=== PATIENT | female | born 1940 | race African-American/Black ===

== ENCOUNTER 2016-05-07 10:39 | Inpatient (IN) | payer OTHER ==
[~2016-05-07] VITALS: Ht 157.5 cm; Wt 73.3 kg
--- NOTE | ~2016-05-07 | SPIROMETRY ---
[facility] [place] [address] SPIROMETRY Name: RAMIRO VAZ Room #: 307-P [facility] IN M.R.#: [id number] Admission: 05/07/16 Attend Phys: Andrew Milan DO Discharge: 05/11/16 Date of : 40 Report #: [id number] THIS REPORT FOR: //name// >> SPIROMETRY: (BTPS) Height: 62 in cm Weight: 161 lbs kg Exam Date: 05/08/16 PRE-RX POST-RX PRED BEST %PRED BEST %PRED %CHG FVC LITERS . 2.51 . 0.91 . 36 . 0.91 . 36 . 0 FEV1 LITERS . 1.92 . 0.58 . 30 . 0.57 . 30 . -2 FEV1/FVC % . 78 . 64 . 81 . 63 . 80 . -7 XTA47-96% L/Sec . 1.76 . 0.30 . 17 . 0.30 . 17 . 0 PEF L/SEC . 5.08 . 2.02 . 40 . 1.87 . 37 . -7 FEF50/FIF50 UNITLESS . . . . . . >> INTERPRETATION/IMPRESSION: CC: FAM unknown Andrew Milan Spirometry both pre- and post-meth 3 short blows. There is no significant change, post. suggests low FVC with severe obstruction. <ELECTRONICALLY SIGNED> By: Thea Ly MD 05/13/16 2309 Thea Ly MD /nt
--- NOTE | ~2016-05-07 | 2DMMODE ---
[facility] [place] [address] 2 D/M-MODE ECHOCARDIOGRAM Name: RAMIRO VAZ Room #: 307-P [facility] IN ..#: [id number] Admission: 05/07/16 Attend Phys: Andrew Milan, Discharge: Date of : 40 Date of Service: 05/08/16 1231 Report #: [id number] THIS REPORT FOR: //name// Transthoracic Echocardiography Ordering physician: True John Referring physician: True John Draw Operator: IDANIA Morin Indications/History: SOA, Pulmonary HTN. BP: 114 / HR: 111bpm Height: 62in Weight: 160.7lb 65 Study data: M-mode, complete 2D, complete spectral Doppler, and color Doppler. Location: Bedside. Routine. Image quality was good. 2D measurements Normal Normal LVID ED 38.4mm 36-57 IVS ED 9.8mm 6-11 LVID ES 27.6mm 23-40 LVPW ED 11.2mm 6-11 LA volume 25ml/m2 16-28 AoRoot diam 29.3mm 21-37 index ED LVOT diameter 21mm 18-23 Findings: Left ventricle: The cavity size was normal. Wall thickness was normal. Systolic function was normal. The estimated ejection fraction was in the range of 60% to 65%. Wall motion was normal. Right ventricle: The cavity size was normal. Systolic function was normal. Right atrium: The atrium was normal in size. Left atrium: The atrium was normal in size. Volume index: 25ml/m2 (S). Aortic valve: Trileaflet; mildly calcified leaflets. Doppler: There was no stenosis. No regurgitation. Peak velocity: 177.5cm/s (S). Peak gradient: 12.6mm Hg (S). [facility] [address] [place] [address] 2 D/M-MODE ECHOCARDIOGRAM Name: RAMIRO VAZ Room #: 625-P [facility] IN Deedee#: [id number] Admission: 05/07/16 Attend Phys: Andrew Milan, Discharge: Date of : 40 Date of Service: 05/08/16 1231 Report #: [id number] Mitral valve: Moderately calcified annulus. Doppler: There was no evidence for stenosis. No regurgitation. Peak E-wave velocity: 86.7cm/s. Peak gradient: 3mm Hg (D). Peak A-wave velocity: 138.8cm/s. Tricuspid valve: Structurally normal valve. Doppler: There was no evidence for stenosis. Mild regurgitation. Regurgitant peak velocity: 323.3cm/s. Peak RV-RA gradient: 42mm Hg (S). Pulmonic valve: Structurally normal valve. Doppler: There was no evidence for stenosis. No regurgitation. Pericardium: There was no pericardial effusion. Aorta: Aortic root: The aortic root was normal in size. Pulmonary artery: Systolic pressure was estimated to be 50mm Hg. Diastolic function: Doppler parameters are consistent with abnormal left ventricular relaxation (grade 1 diastolic dysfunction). Systemic veins: Inferior vena cava: The vessel was dilated; the respirophasic diameter changes were in the normal range (= 50%). Conclusions 1. Left ventricle: Systolic function was normal. The estimated ejection fraction was in the range of 60% to 65%. Wall motion was normal. Doppler parameters are consistent with abnormal left ventricular relaxation (grade 1 diastolic dysfunction). 2. Aortic valve: Trileaflet; mildly calcified leaflets. There was no stenosis. No regurgitation. 3. Mitral valve: Moderately calcified annulus. No regurgitation. 4. Pericardium, extracardiac: There was no pericardial effusion. 5. Pulmonary arteries: Systolic pressure was estimated to be 50mm Hg. <ELECTRONICALLY SIGNED> By: Raul Brown MD, [facility] 05/08/161903 1231 03 Raul Brown MD, [facility] /denzel
--- NOTE | ~2016-05-07 | D ---
[facility] [place] [address] DISCHARGE SUMMARY Name: RAMIRO VAZ Room #: 307-P [facility] IN M.R.#: [id number] Admission: 05/07/16 Attend Phys: Andrew Milan DO Discharge: 05/11/16 Date of : 40 Report #: [id number] THIS REPORT FOR: //name// CC: FAM unknown Andrew Milan DATE OF SERVICE: 05/11/2016 TYPE OF DICTATION: Discharge summary after xlhy-qb-nqeu encounter. DISCHARGE DIAGNOSES: 1. Chronic obstructive pulmonary disease exacerbation. 2. Acute on chronic respiratory failure. 3. Hypertension. 4. Tobacco abuse. 5. Leukocytosis, resolved. DISCHARGE MEDICATIONS: See discharge summary. HOSPITAL COURSE: The patient was admitted to the hospital secondary to short of breath. She was having acute on chronic respiratory failure with COPD exacerbation. I think she might have some infection triggering that. The patient was seen by the pulmonary service and she had an echocardiogram, which did show ejection fraction of 60% with normal structures. The patient's TSH was normal and her ABGs started to get better and the hypercapnia resolved completely and she oxygen requirement, which she is using at home. So, the patient improved and at this point, Pulmonary thinks that she can go home. To continue 5 days of Levaquin and nebulizers and oxygen at home and follow up with her primary lung puller at [facility]. The patient is stable, going home on the above-mentioned condition. <ELECTRONICALLY SIGNED> By: Julio Cesar Mary MD 05/12/16 1126 0843 1147 Julio Cesar Mary MD /nt
--- NOTE | ~2016-05-07 | EKG ---
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
[2016-05-07 10:40] VITALS: BP 130/72
[2016-05-07 11:02] LABS: ABSOLUTE NEUTROPHILS 3.8 thou/uL (1.4-8.2); BASOPHILS 0.9 % (0.0-2.0); EOSINOPHILS 1.3 % (0.0-3.0); HEMATOCRIT 46.6 % (37.0-47.0); HEMOGLOBIN 15.2 gm/dL (12.0-15.0); LYMPHOCYTES 24.3 % (24.0-44.0); MCH 31.4 pg (26.0-34.0); MCHC 32.6 % (28.0-37.0); MCV 96.3 fL (80.0-100.0); MONOCYTES 11.7 % (1.0-8.0); PLATELET COUNT 261 thou/uL (150-400); POLYS 61.8 % (36.0-66.0); RBC 4.84 mil/uL (4.20-5.00); WBC 6.1 thou/uL (4.0-11.0)
[2016-05-07 11:05] LABS: MANUAL DIFF NO
[2016-05-07 11:15] LABS: ABG SAMPLE TYPE ARTERIAL; BE(vivo) 7.7 mmol/L (-2 to +3); HCO3 37.7 mmol/L (22.0-26.0); LACTATE 1.42 mmol/L (0.5-2.0); O2(CT) 19.9 mL/dL (15.0-23.0); O2Hb 88.5 % (92.0-98.0); PO2 73.3 mmHg (80.0-100.0); sO2 92.6 % (92.0-98.0); tCO2 40.1 mmol/L (24.0-30.0)
[2016-05-07 11:17] LABS: STICK SITE R.BRACHIAL; pH 7.302 (7.360-7.450)
[2016-05-07 11:19] LABS: CALCIUM 9.2 mg/dL (8.5-10.1); CREATININE 0.8 mg/dL (0.6-1.3); POTASSIUM 4.2 mmol/L (3.5-5.1)
[2016-05-07] MEDS ORDERED: NORVASC10 MG PO (11:21)
[2016-05-07] MEDS ORDERED: KLOR-CON 1010 MEQ PO (11:21)
[2016-05-07] MEDS ORDERED: HYDROCHLOROTHIA25 M2 PO (11:21)
[2016-05-07] MEDS ORDERED: ASPIR 8181 MG PO (11:21)
[2016-05-07] MEDS ORDERED: VITAMIN D3400 UNIT PO (11:21)
[2016-05-07] MEDS ORDERED: PROAIR HFA8.5 GM PO (11:22)
[2016-05-07] MEDS ORDERED: COMBIVENT RESPIM4 GM IH (11:22)
[2016-05-07] MEDS ORDERED: SIMBRINZA 1%-0.28 ML OP (11:23)
[2016-05-07 11:26] LABS: TROPONIN-I 0.13 ng/mL (<0.04-0.07)
[2016-05-07 13:36] LABS: ABG SAMPLE TYPE ARTERIAL; BE(vivo) 5.2 mmol/L (-2 to +3); HCO3 34.9 mmol/L (22.0-26.0); LACTATE 0.86 mmol/L (0.5-2.0); O2(CT) 19.8 mL/dL (15.0-23.0); O2Hb 90.4 % (92.0-98.0); PO2 78.7 mmHg (80.0-100.0); STICK SITE R.BRACHIAL; pH 7.286 (7.360-7.450); sO2 93.7 % (92.0-98.0); tCO2 37.2 mmol/L (24.0-30.0)
[2016-05-07] MEDS ORDERED: DORZOLAMIDE HCL10 ML OP (15:45)
[2016-05-07] MEDS ORDERED: BRIMONIDINE TAR1 BO1 OP (15:46)
[2016-05-07] MEDS ORDERED: TIMOLOL MA0.25 %/52 (15:46)
[2016-05-07 16:01] VITALS: BP 118/63
[2016-05-07 19:55] VITALS: BP 111/71
[2016-05-08 00:15] VITALS: BP 101/60
[2016-05-08 03:45] VITALS: BP 119/73
[2016-05-08 06:33] LABS: ABSOLUTE NEUTROPHILS 4.1 thou/uL (1.4-8.2); BASOPHILS 0.2 % (0.0-2.0); HEMATOCRIT 46.2 % (37.0-47.0); HEMOGLOBIN 14.9 gm/dL (12.0-15.0); LYMPHOCYTES 10.1 % (24.0-44.0); MCH 31.3 pg (26.0-34.0); MCHC 32.3 % (28.0-37.0); MCV 96.8 fL (80.0-100.0); MONOCYTES 1.4 % (1.0-8.0); PLATELET COUNT 248 thou/uL (150-400); POLYS 88.3 % (36.0-66.0); RBC 4.78 mil/uL (4.20-5.00); RDW 13.8 % (10.5-14.5); WBC 4.7 thou/uL (4.0-11.0)
[2016-05-08 06:45] LABS: MANUAL DIFF NO
[2016-05-08 06:53] LABS: CALCIUM 9.4 mg/dL (8.5-10.1); CREATININE 0.8 mg/dL (0.6-1.3); POTASSIUM 4.9 mmol/L (3.5-5.1)
[2016-05-08 06:58] LABS: ABG SAMPLE TYPE ARTERIAL; BE(vivo) 4.1 mmol/L (-2 to +3); LACTATE 1.01 mmol/L (0.5-2.0); O2(CT) 20.5 mL/dL (15.0-23.0); O2Hb 93.3 % (92.0-98.0); PCO2 75.5 mmHg (35.0-45.0); PO2 83.8 mmHg (80.0-100.0); STICK SITE R.BRACHIAL; pH 7.271 (7.360-7.450); sO2 94.5 % (92.0-98.0); tCO2 36.3 mmol/L (24.0-30.0)
[2016-05-08 10:13] VITALS: BP 114/65
[2016-05-08 18:16] VITALS: BP 105/64
[2016-05-08 20:00] VITALS: BP 105/59
[2016-05-09 04:00] VITALS: BP 105/57
[2016-05-09 05:42] LABS: HEMATOCRIT 44.2 % (37.0-47.0); HEMOGLOBIN 14.1 gm/dL (12.0-15.0); MCHC 31.8 % (28.0-37.0); MCV 97.3 fL (80.0-100.0); PLATELET COUNT 259 thou/uL (150-400); RBC 4.54 mil/uL (4.20-5.00); RDW 14.1 % (10.5-14.5); WBC 11.5 thou/uL (4.0-11.0)
[2016-05-09 05:51] LABS: MANUAL DIFF YES
[2016-05-09 05:55] LABS: CALCIUM 9.6 mg/dL (8.5-10.1); CREATININE 0.9 mg/dL (0.6-1.3); POTASSIUM 4.8 mmol/L (3.5-5.1)
[2016-05-09 07:17] LABS: ABSOLUTE NEUTROPHILS 10.5 thou/uL (1.4-8.2); PLATELET ESTIMATE NORMAL; TOTAL CELL COUNT 100
[2016-05-09 08:39] VITALS: BP 110/66
[2016-05-09 09:45] LABS: ABG SAMPLE TYPE ARTERIAL; BE(vivo) 5.8 mmol/L (-2 to +3); HCO3 33.1 mmol/L (22.0-26.0); LACTATE 2.57 mmol/L (0.5-2.0); O2(CT) 19.2 mL/dL (15.0-23.0); O2Hb 93.4 % (92.0-98.0); PCO2 59.3 mmHg (35.0-45.0); PO2 79.5 mmHg (80.0-100.0); STICK SITE L.BRACHIAL; pH 7.365 (7.360-7.450); sO2 95.1 % (92.0-98.0); tCO2 34.9 mmol/L (24.0-30.0)
[2016-05-09 16:01] VITALS: BP 118/70
[2016-05-09 20:00] VITALS: BP 104/69
[2016-05-10 04:00] VITALS: BP 109/66
[2016-05-10 07:14] VITALS: BP 108/76
[2016-05-10 11:23] VITALS: BP 102/59
[2016-05-10 15:49] VITALS: BP 119/67
[2016-05-10 19:35] VITALS: BP 111/62
[2016-05-11 03:42] VITALS: BP 107/60
[2016-05-11 04:37] LABS: HEMATOCRIT 44.7 % (37.0-47.0); HEMOGLOBIN 14.2 gm/dL (12.0-15.0); MCHC 31.7 % (28.0-37.0); MCV 97.9 fL (80.0-100.0); PLATELET COUNT 242 thou/uL (150-400); RBC 4.56 mil/uL (4.20-5.00)
[2016-05-11 04:48] LABS: MANUAL DIFF YES
[2016-05-11 05:00] LABS: CALCIUM 9.5 mg/dL (8.5-10.1); CREATININE 0.8 mg/dL (0.6-1.3); POTASSIUM 4.5 mmol/L (3.5-5.1)
[2016-05-11 07:40] VITALS: BP 117/70
[2016-05-11] MEDS ORDERED: PREDNISONE 20 M20 M1 PO (08:47)
[2016-05-11] MEDS ORDERED: LEVAQUIN 750 M750 MG PO (08:47)
[2016-05-11 10:23] VITALS: BP 117/70
[2016-05-11 14:16] LABS: ABSOLUTE NEUTROPHILS 7.8 thou/uL (1.4-8.2); ATYPICAL LYMPHS 1 %; TOTAL CELL COUNT 100
[2016-05-13 22:08] LABS: INFLUENZA B Negative (Negative); METAPNEUMOVIRUS Negative (Negative)
== END 2016-05-11 13:34 | disposition home or self-care (01) | DRG 189 ==
LOC: ER 10:39 → EROBS 13:59 → 3N 13:59
PROVIDERS: Emergency Medicine; Family Medicine; Hospitalist; Internal Medicine Pulmonary Disease; Physician Assistant
DX: J96.21 Acute and chronic respiratory failure with hypoxia (principal); J44.1 Chronic obstructive pulmonary disease with (acute) exacerbation; E87.2 Acidosis; J96.22 Acute and chronic respiratory failure with hypercapnia; I10 Essential (primary) hypertension; D72.829 Elevated white blood cell count, unspecified; H40.9 Unspecified glaucoma; F17.210 Nicotine dependence, cigarettes, uncomplicated; Z79.82 Long term (current) use of aspirin; Z79.899 Other long term (current) drug therapy; Z90.710 Acquired absence of both cervix and uterus
CPT/HCPCS: 10096

== ENCOUNTER 2017-01-16 11:58 | Inpatient (IN) | payer OTHER ==
[~2017-01-16] VITALS: Ht 154.9 cm; Wt 74.8 kg
--- NOTE | ~2017-01-16 | 2DMMODE ---
[facility] [address] [email or web address] [address] 2 D/M-MODE ECHOCARDIOGRAM Name: RAMIRO VAZ Room #: 447-P ADM IN M.R.#: [id number] Admission: 01/16/17 Attend Phys: Andrew Milan, Discharge: Date of : 40 Date of Service: 01/17/17 1205 Report #: [id number] THIS REPORT FOR: //name// APPROVED REPORT Study performed: 01/17/2017 11:08:41 EXAM: Comprehensive 2D, Doppler, and color-flow Echocardiogram Patient Location: Bedside Room #: [facility] Status: routine BSA: 1.72 HR: 97 bpm BP: 105/47 mmHg Other Information Study Quality: Adequate Indications COPD Pulmonary Hypertension 2D Dimensions RVDd: 32.12 mm LVEF(%): 54.76 (>50%) IVSd: 10.37 (7-11mm) LVOT Diam: 21.41 (18-24mm) LVDd: 46.57 mm PWd: 9.48 (7-11mm) Ascending Ao: 29.38 (22-36mm) LVDs: 33.37 (25-40mm) Aortic Root: 30.91 mm IVC: 21.00 mm Gaffney's LVEF: 54.76 % Volumes Left Atrial Volume (Systole) Single Plane 4CH: 46.10 mL Single Plane 2CH: 36.14 mL LA ESV Index: 27.00 mL/m2 Aortic Valve AoV Peak Domenic.: 1.63 m/s AO Peak Gr.: 10.61 mmHg LVOT Max P.25 mmHg LVOT Max V: 0.90 m/s BERTHA Vmax: 1.99 cm2 Mitral Valve E/A Ratio: 0.6 MV Decel. Time: 194.84 ms [facility] [place] [address] 2 D/M-MODE ECHOCARDIOGRAM [facility]: [facility] IN .R.#: [id number] Admission: 01/16/17 Attend Phys: Andrew Milan, Discharge: Date of : 40 Date of Service: 01/17/17 1205 Report #: [id number] MV E Max Domenic.: 0.84 m/s MV A Domenic.: 1.36 m/s MV PHT: 56.50 ms IVRT: 110.73 ms Pulmonary Valve PV Peak Domenic.: 0.94 m/s PV Peak Gr.: 3.53 mmHg Pulmonary Vein P Vein S: 0.52 m/s P Vein A: 0.31 m/s P Vein D: 0.29 m/s P Vein A Dur.: 86.5 msec P Vein S/D Ratio: 1.79 Tricuspid Valve TR Peak Domenic.: 3.04 m/s TR Peak Gr.: 36.99 mmHg PA Pressure: 47.00 mmHg Left Ventricle The left ventricle is normal size. There is normal left ventricular wall thickness. The left ventricular systolic function is normal. The left ventricular ejection fraction is within the normal range. LVEF is 50-55%. This study is not technically sufficient to allow evaluation of the LV diastolic function. Right Ventricle The right ventricle is normal size. The right ventricular systolic function is normal. Atria The left atrium size is normal. The right atrium size is normal. Aortic Valve The aortic valve is normal in structure. Aortic valve is calcified. No aortic regurgitation is present. There is no aortic valvular stenosis. Mitral Valve The mitral valve is normal in structure. There is no mitral valve regurgitation noted. No evidence of mitral valve stenosis. Tricuspid Valve The tricuspid valve is normal in structure. There is trace tricuspid regurgitation. The right atrial pressure is estimated at 40mmHg. There is moderate pulmonary hypertension. [address] [address] 2 D/M-MODE ECHOCARDIOGRAM Name: RAMIRO VAZ Room #: 447-P [facility] IN M.R.#: [id number] Admission: 01/16/17 Attend Phys: Andrew Milan, Discharge: Date of : 40 Date of Service: 01/17/17 1205 Report #: [id number] Pulmonic Valve The pulmonary valve is normal in structure. There is no pulmonic valvular regurgitation. Great Vessels The aortic root is normal in size. IVC is normal in size and collapses >50% with inspiration. Pericardium There is no pericardial effusion. <Conclusion> The left ventricle is normal size. The left ventricular systolic function is normal. The right ventricle is normal size. The left atrium size is normal. The aortic valve is normal in structure. Aortic valve is calcified. There is no mitral valve regurgitation noted. There is trace tricuspid regurgitation. The right atrial pressure is estimated at 40mmHg. There is moderate pulmonary hypertension. <ELECTRONICALLY SIGNED> By: Bakari Dutton MD 01/17/17 1205 04 04 Bakari Dutton MD /INF
--- NOTE | ~2017-01-16 | EKG ---
[address] [address] ELECTROCARDIOGRAM REPORT Name: RAMIRO VAZ Room #: 447-P ADM IN M.R.#: [id number] Admission: 01/16/17 Attend Phys: Andrew Milan DO Discharge: Date of : 40 Report #: [id number] THIS REPORT FOR: //name// [facility] Test Date: 2017-01-17 Test Time: 06:14:25 Pat Name: RAMIRO VAZ Department: Room: 447 Gender: F Patcher Bowling Ball: ALPESH : 1940 Requested By: Thea Ly Order Number: [id number] MD: Raul Brown Measurements Intervals [place] Rate: 93 P: 65 NC: 138 QRS: 39 QRSD: 78 T: 62 QT: 382 QTc: 476 Interpretive Statements Sinus rhythm No significant abnormality Compared to ECG 01/16/2017 12:09:22 Sinus tachycardia no longer present Electronically Signed On 01-17-2017 8:26:38 CDT by Raul Brown [email or web address] <ELECTRONICALLY SIGNED> By: Raul Brown MD, [facility] 01/17/17 0826 D: [id number] 3 Raul Brown MD, [facility] /EPI
--- NOTE | ~2017-01-16 | EKG ---
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
[~2017-01-16 11:58] MED LIST: ASPIR 8181 MG PO; BRIMONIDINE TAR1 BO1 OP; COMBIVENT RESPIM4 GM IH; DORZOLAMIDE HCL10 ML OP; HYDROCHLOROTHIA25 M2 PO; KLOR-CON 1010 MEQ PO; LEVAQUIN 750 M750 MG PO; NORVASC10 MG PO; PREDNISONE 20 M20 M1 PO; PROAIR HFA8.5 GM PO; SIMBRINZA 1%-0.28 ML OP; TIMOLOL MA0.25 %/52; VITAMIN D3400 UNIT PO
[2017-01-16 11:59] VITALS: BP 138/75
[2017-01-16 13:12] LABS: ABG SAMPLE TYPE ARTERIAL; HCO3 36.5 mmol/L (22.0-26.0); LACTATE 1.15 mmol/L (0.5-2.0); O2(CT) 16.1 mL/dL (15.0-23.0); PCO2 64.6 mmHg (35.0-45.0); PO2 57.7 mmHg (80.0-100.0); sO2 88.3 % (92.0-98.0); tCO2 38.5 mmol/L (24.0-30.0)
[2017-01-16 13:13] LABS: STICK SITE R.RADIAL
[2017-01-16 13:14] LABS: ABSOLUTE NEUTROPHILS 3.9 thou/uL (1.4-8.2); BASOPHILS 0.9 % (0.0-2.0); EOSINOPHILS 1.8 % (0.0-3.0); HEMATOCRIT 37.8 % (37.0-47.0); HEMOGLOBIN 12.3 gm/dL (12.0-15.0); LYMPHOCYTES 18.1 % (24.0-44.0); MCH 30.9 pg (26.0-34.0); MCHC 32.5 g/dL (28.0-37.0); MCV 95.1 fL (80.0-100.0); MONOCYTES 10.4 % (1.0-8.0); PLATELET COUNT 307 thou/uL (150-400); POLYS 68.8 % (36.0-66.0); RBC 3.97 mil/uL (4.20-5.00); RDW 13.4 % (10.5-14.5); WBC 5.7 thou/uL (4.0-11.0)
[2017-01-16 13:15] LABS: MANUAL DIFF NO
[2017-01-16 13:17] LABS: CALCIUM 8.8 mg/dL (8.5-10.1); CREATININE 0.5 mg/dL (0.6-1.0); POTASSIUM 3.9 mmol/L (3.5-5.1)
[2017-01-16 13:26] LABS: TROPONIN-I 0.28 ng/mL (<0.04-0.07)
[2017-01-16 15:44] VITALS: BP 134/68
[2017-01-16 16:15] VITALS: BP 141/77
[2017-01-16 19:47] VITALS: BP 123/56
[2017-01-17 05:20] VITALS: BP 100/47
[2017-01-17 06:30] LABS: HEMATOCRIT 36.1 % (37.0-47.0); HEMOGLOBIN 11.5 gm/dL (12.0-15.0); MCH 30.6 pg (26.0-34.0); MCHC 31.9 g/dL (28.0-37.0); MCV 95.6 fL (80.0-100.0); PLATELET COUNT 300 thou/uL (150-400); RBC 3.77 mil/uL (4.20-5.00); RDW 12.9 % (10.5-14.5); WBC 5.5 thou/uL (4.0-11.0)
[2017-01-17 06:33] LABS: MANUAL DIFF YES
[2017-01-17 06:43] LABS: ALBUMIN 2.8 g/dL (3.4-5.0); CALCIUM 9.2 mg/dL (8.5-10.1); CREATININE 0.7 mg/dL (0.6-1.0); POTASSIUM 4.2 mmol/L (3.5-5.1); TOTAL BILIRUBIN 0.3 mg/dL (<0.1-1.0); TOTAL PROTEIN 7.1 g/dL (6.4-8.2)
[2017-01-17 07:30] LABS: ABG SAMPLE TYPE ARTERIAL; BE(vivo) 6.7 mmol/L (-2 to +3); HCO3 34.3 mmol/L (22.0-26.0); O2(CT) 16.3 mL/dL (15.0-23.0); O2Hb 94.5 % (92.0-98.0); PCO2 64.4 mmHg (35.0-45.0); PO2 82.4 mmHg (80.0-100.0); STICK SITE L.BRACHIAL; pH 7.344 (7.360-7.450); sO2 95.2 % (92.0-98.0); tCO2 36.3 mmol/L (24.0-30.0)
[2017-01-17 08:07] VITALS: BP 105/47
[2017-01-17 08:52] LABS: ABSOLUTE NEUTROPHILS 5.2 thou/uL (1.4-8.2); PLATELET ESTIMATE NORMAL; TOTAL CELL COUNT 100
[2017-01-17 16:52] VITALS: BP 117/61
[2017-01-17 20:25] VITALS: BP 110/55
[2017-01-18 04:15] VITALS: BP 120/68
[2017-01-18 04:48] LABS: HEMATOCRIT 34.6 % (37.0-47.0); MCH 30.2 pg (26.0-34.0); MCHC 31.7 g/dL (28.0-37.0); MCV 95.4 fL (80.0-100.0); PLATELET COUNT 303 thou/uL (150-400); RBC 3.63 mil/uL (4.20-5.00); RDW 13.3 % (10.5-14.5); WBC 11.3 thou/uL (4.0-11.0)
[2017-01-18 04:50] LABS: MANUAL DIFF YES
[2017-01-18 04:57] LABS: CALCIUM 9.6 mg/dL (8.5-10.1); CREATININE 0.8 mg/dL (0.6-1.0); POTASSIUM 4.6 mmol/L (3.5-5.1)
[2017-01-18 08:04] VITALS: BP 129/64
[2017-01-18 08:31] LABS: ABSOLUTE NEUTROPHILS 10.1 thou/uL (1.4-8.2); TOTAL CELL COUNT 100
[2017-01-18] MEDS ORDERED: PROAIR HFA8.5 GM PO (10:17)
[2017-01-18] MEDS ORDERED: ALBUTEROL2.5 MG/0.5 INH (10:17)
[2017-01-18] MEDS ORDERED: LEVAQUIN 500 M500 M2 PO (10:22)
[2017-01-18] MEDS ORDERED: MEDROL DOSPAK21 TA1 PO (10:22)
[2017-01-18 11:51] VITALS: BP 129/64
== END 2017-01-18 17:05 | disposition home health service (06) | DRG 189 ==
LOC: ER 11:58 → EROBS 14:39 → 4S 14:39
PROVIDERS: Emergency Medicine; Family Medicine; Internal Medicine Pulmonary Disease
DX: J96.02 Acute respiratory failure with hypercapnia (principal); J44.1 Chronic obstructive pulmonary disease with (acute) exacerbation; J96.01 Acute respiratory failure with hypoxia; G47.33 Obstructive sleep apnea (adult) (pediatric); E66.3 Overweight; I10 Essential (primary) hypertension; I27.20 Pulmonary hypertension, unspecified; M62.81 Muscle weakness (generalized); Z79.82 Long term (current) use of aspirin; Z79.899 Other long term (current) drug therapy; Z90.710 Acquired absence of both cervix and uterus; Z23 Encounter for immunization; Z99.81 Dependence on supplemental oxygen; Z87.891 Personal history of nicotine dependence; Z68.31 Body mass index [BMI] 31.0-31.9, adult; Z82.49 Family history of ischemic heart disease and other diseases of the circulatory system; Z83.3 Family history of diabetes mellitus; Z80.8 Family history of malignant neoplasm of other organs or systems
CPT/HCPCS: 10100

== ENCOUNTER 2017-02-03 23:16 | Inpatient (IN) | payer OTHER ==
[~2017-02-03] VITALS: Ht 165.1 cm; Wt 78.1 kg
--- NOTE | ~2017-02-03 | EKG ---
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
--- NOTE | ~2017-02-03 | HC ---
[facility] [place] [address] CONSULTATION Name: RAMIRO VAZ Room #: [facility] ADM IN M.R.#: [id number] Admission: 02/04/17 Attend Phys: Stanton Carlson DO Discharge: Date of : 40 Report #: [id number] THIS REPORT FOR: //name// CC: Raul Brown MD [facility] FEL[facility] Carlson DATE OF SERVICE: 02/04/2017 REFERRING PROVIDER: Dr. Raul Brown. REASON FOR CONSULTATION: COPD. CHIEF COMPLAINT: Shortness of breath. HISTORY OF PRESENT ILLNESS: Our group was asked to evaluate the patient in consultation while hospitalized at [facility]. She is a pleasant 76-year-old woman with a past history of COPD, had previously been followed by Dr. Adler at [facility]. Has been hospitalized now 3 times at [facility] this year, most recently just 3 weeks ago with similar complaints. The patient noted increasing shortness of breath, no cough or congestion, some wheezing noted. Initially evaluated by me in April for an acute COPD exacerbation and hypercapnia. At that time, had been on Symbicort and remains on Symbicort somewhat sporadically consistent with using twice daily as well as p.r.n. albuterol inhaler, which she is using 3-4 times daily. She also has a nebulizer, which she uses at home and is chronically on 3 liters nasal cannula O2, presented to the Emergency Department with the above complaints. A CT scan of the chest and PE protocol revealed some scattered ground glass infiltrates, no evidence of pulmonary embolism and mild bronchiectasis also appreciated. Also, some findings consistent with pulmonary hypertension, which were known from prior workups. She did have a mildly elevated troponin, which prompted a Cardiology evaluation. She is to get an outpatient stress test in the near future. Currently feels somewhat better, but gets severely dyspneic just ambulating to the bathroom today. ALLERGIES: Unknown. PAST MEDICAL HISTORY: 1. History of COPD problems with an asthmatic component. 2. History of chronic hypoxemic respiratory failure. 3. Hypertension. 4. Pulmonary hypertension. 5. Glaucoma. 6. Macular degeneration on the left eye. OUTPATIENT MEDICATIONS: Included Symbicort, Spiriva, DuoNeb, brimonidine eye [address] [address] CONSULTATION Name: RAMIRO VAZ Room #: [address] [place] [address] IN M.R.#: [id number] Admission: 02/04/17 Attend Phys: Stanton Carlson DO Discharge: Date of : 40 Report #: [id number]. Recently stated she stopped her potassium supplement and antihypertensive medications. SOCIAL HISTORY: Ex-smoker, quitting in May. No significant alcohol consumption. Currently lives with family, however, recently had placed in a assisted. FAMILY HISTORY: Negative for any significant pulmonary disease. REVIEW OF SYSTEMS: Twelve-point review of systems otherwise normal. No fever, chills, sweats or other complaints. PHYSICAL EXAMINATION: VITAL SIGNS: Afebrile, pulse 90s, respiratory rate 18, blood pressure 164/91, oxygen saturation 100% on 4 liters nasal cannula. GENERAL: This is a pleasant elderly woman in no distress. ENT: Clear oropharynx, Mallampati 2 airway, no thrush. No erythema. NECK: Supple, no lymphadenopathy. LUNGS: Diminished, minimal ____ inspiratory crackles, no wheezes. CARDIOVASCULAR: Heart regular. No murmurs or gallops noted. ABDOMEN: Soft, nontender, no masses. EXTREMITIES: With no significant edema. LABORATORY DATA: Chemistry profile essentially normal except for mildly elevated glucose 120. White blood cell count 7.6, hemoglobin 11, hematocrit 34, platelet count 321. Arterial blood gas not performed. CT scan as described in HPI. IMPRESSION: 1. Acute exacerbation of chronic obstructive pulmonary disease. 2. Pulmonary infiltrates consistent with community-acquired pneumonia. 3. Chronic obstructive pulmonary disease with an asthmatic component. SUGGESTIONS: 1. Systemic steroids with taper. 2. Continue with bronchodilators. 3. Followup chest radiograph. 4. Mobilize as tolerated. 5. Doxycycline. 6. We will follow along with you. Thank you for requesting our suggestions. By: 1313 1701 True John MD /nt
--- NOTE | ~2017-02-03 | HC ---
[facility] [place] [address] CONSULTATION Name: RAMIRO VAZ Room #: [address] [place] [address] IN M.R.#: [id number] Admission: 02/04/17 Attend Phys: Stanton Carlson DO Discharge: 02/06/17 Date of : 40 Report #: [id number] THIS REPORT FOR: //name// CC: Mita Carlson REASON FOR CONSULTATION: Tiny troponin elevation. HISTORY OF PRESENT ILLNESS: The patient is a 76-year-old woman with history of significant COPD and hypertension. Please see her original consult note date of 01/17/2017 when she was admitted with COPD exacerbation and marginal elevated troponin. She now presents with increasing shortness of breath and audible wheezing. In this setting, a troponin was reordered and once again minimally elevated at 0.35. She has not had a normal troponin on serial multiple assessments. Also, none of these troponins have been in a diagnostic range and have occurred in the setting of COPD exacerbation with pulmonary hypertension. Arrangements were made for an outpatient stress test to be performed on February 13. She has had multiple serial echocardiograms, one in April and then most recently in January of this year, which demonstrated normal left ventricular systolic function and a pulmonary artery pressure of at least 40 mmHg. She denies chest pain, pressure or ischemic type symptoms. No history of palpitations. No history of near syncope or syncope. She denies fevers or chills. MEDICATIONS: Include albuterol, amlodipine, hydrochlorothiazide 25 mg daily, potassium 10 mEq daily. PAST MEDICAL HISTORY: Medical records have been reviewed and include a history of COPD, macular degeneration, partial hysterectomy, glaucoma. SOCIAL HISTORY: She is a former smoker. FAMILY HISTORY: Unremarkable for premature coronary disease. REVIEW OF SYSTEMS: All systems negative except as that noted above. PHYSICAL EXAMINATION: GENERAL: A pleasant woman in no distress. VITAL SIGNS: Blood pressure is 145/75, heart rate of 110 and regular. She is afebrile, 5 feet 5 inches tall, 175 pounds. HEENT: There are neither xanthelasma, subcutaneous xanthomata, oral mucosal or digital cyanosis or kyphoscoliosis present. CHEST: Reveals mid end expiratory bilateral wheezing. CARDIAC: Regular rate and rhythm with normal S1 and increased pulmonic closure sound. [facility] [address] [place] [address] CONSULTATION Name: RAMIRO VAZ Room #: [address] [place] [address] IN M.R.#: [id number] Admission: 02/04/17 Attend Phys: Stanton Carlson DO Discharge: 02/06/17 Date of : 40 Report #: [id number] ABDOMEN: Soft and nontender. EXTREMITIES: Without cyanosis, clubbing or edema. Radial pulses are 2+. NEUROLOGIC: She is alert with a nonfocal exam. LABORATORY DATA: EKG demonstrates sinus tachycardia. There are no acute ST or T-wave changes. Sodium 141, potassium 3.6, creatinine 0.7. Troponin 0.35. White count 7.6, hemoglobin 10, hematocrit 33, platelet count 221. IMPRESSION: 1. Chronic obstructive pulmonary disease exacerbation. 2. Tiny nondiagnostic troponin elevation, likely secondary to RV strain in setting of chronic obstructive pulmonary disease exacerbation. 3. Hypertension. RECOMMENDATIONS: 1. Therapy directed toward of recurrence of her underlying lung disease. 2. Outpatient ischemia evaluation; pharmacologic stress study as previously scheduled on February 13. No further additional therapy is needed at this point. I have discussed these issues with the patient in detail. Thank you for asking me to participate in her care. <ELECTRONICALLY SIGNED> By: Raul Brown MD, FACC 02/07/17 1711 0722 0807 Raul Brown MD, FACC /nt
--- NOTE | ~2017-02-03 | EKG ---
[address] [address] ELECTROCARDIOGRAM REPORT Name: RAMIRO VAZ Room #: 211-P ADM IN M.R.#: [id number] Admission: 02/04/17 Attend Phys: Stanton Carlson DO Discharge: Date of : 40 Report #: [id number] THIS REPORT FOR: //name// [facility] ED Test Date: 2017-02-03 Test Time: 23:21:28 Pat Name: RAMIRO VAZ Department: Room: 211 Gender: F Records Administrator: MZOOK : 1940 Requested By: Mario Marks Order Number: [id number] MD: Jacky Ybarra Measurements Intervals [place] Rate: 135 P: 85 NE: 127 QRS: 62 QRSD: 77 T: 5 QT: 304 QTc: 456 Interpretive Statements Sinus tachycardia ST depression, probably rate related Compared to ECG 01/17/2017 06:14:25 ST (T wave) deviation now present Sinus rhythm no longer present Electronically Signed On 02-04-2017 7:14:16 CDT by Jacky Ybarra [email or web address] <ELECTRONICALLY SIGNED> By: Jacky Ybarra MD 02/04/17 0714 20 20 Jacky Ybarra MD /EVA
[~2017-02-03 23:16] MED LIST changes: +ALBUTEROL2.5 MG/0.5 INH; +LEVAQUIN 500 M500 M2 PO; +MEDROL DOSPAK21 TA1 PO
[2017-02-03 23:17] VITALS: BP 185/83
[2017-02-04] VITALS (8 sets, daily range): BP systolic 117–164; BP diastolic 52–91
[2017-02-04 00:20] LABS: CALCIUM 9.5 mg/dL (8.5-10.1); CREATININE 0.7 mg/dL (0.6-1.0); POTASSIUM 3.6 mmol/L (3.5-5.1)
[2017-02-04 00:29] LABS: TROPONIN-I 0.32 ng/mL (<0.04-0.07)
[2017-02-04 00:38] LABS: ABSOLUTE NEUTROPHILS 5.2 thou/uL (1.4-8.2); BASOPHILS 0.4 % (0.0-2.0); EOSINOPHILS 2.4 % (0.0-3.0); HEMATOCRIT 33.9 % (37.0-47.0); HEMOGLOBIN 10.9 gm/dL (12.0-15.0); LYMPHOCYTES 17.4 % (24.0-44.0); MCH 30.9 pg (26.0-34.0); MCHC 32.1 g/dL (28.0-37.0); MCV 96.2 fL (80.0-100.0); MONOCYTES 11.9 % (1.0-8.0); PLATELET COUNT 221 thou/uL (150-400); POLYS 67.9 % (36.0-66.0); RBC 3.53 mil/uL (4.20-5.00); RDW 13.6 % (10.5-14.5); WBC 7.6 thou/uL (4.0-11.0)
[2017-02-04 00:41] LABS: MANUAL DIFF NO
[2017-02-04 06:53] LABS: CHOLESTEROL 201 mg/dL (<200); HDL CHOLESTEROL 103 mg/dL (>40); LDL CHOLESTEROL 92 mg/dL (<100); TRIGLYCERIDE 31 mg/dL (<150); TROPONIN-I 0.35 ng/mL (<0.04-0.07); VLDL 6 mg/dL (<40)
[2017-02-04 06:58] LABS: SERUM ASSESSMENT Clear
[2017-02-05 04:46] VITALS: BP 127/74
[2017-02-05 07:01] LABS: ABG SAMPLE TYPE ARTERIAL; BE(vivo) 8.3 mmol/L (-2 to +3); HCO3 35.2 mmol/L (22.0-26.0); LACTATE 1.07 mmol/L (0.5-2.0); O2Hb 94.5 % (92.0-98.0); PCO2 60.5 mmHg (35.0-45.0); PO2 79.6 mmHg (80.0-100.0); STICK SITE R.RADIAL; pH 7.383 (7.360-7.450); sO2 95.3 % (92.0-98.0); tCO2 37.1 mmol/L (24.0-30.0)
[2017-02-05 07:14] VITALS: BP 138/66
[2017-02-05 10:55] VITALS: BP 129/58
[2017-02-05 15:43] VITALS: BP 113/59
[2017-02-05 19:53] VITALS: BP 99/52
[2017-02-06 00:12] VITALS: BP 116/78
[2017-02-06 03:59] LABS: HEMATOCRIT 32.3 % (37.0-47.0); HEMOGLOBIN 10.5 gm/dL (12.0-15.0); MCH 31.1 pg (26.0-34.0); MCHC 32.5 g/dL (28.0-37.0); MCV 95.5 fL (80.0-100.0); PLATELET COUNT 243 thou/uL (150-400); RBC 3.38 mil/uL (4.20-5.00); RDW 13.8 % (10.5-14.5); WBC 8.2 thou/uL (4.0-11.0)
[2017-02-06 04:03] LABS: MANUAL DIFF YES
[2017-02-06 04:11] LABS: CALCIUM 9.9 mg/dL (8.5-10.1); CREATININE 0.7 mg/dL (0.6-1.0); MAGNESIUM 1.9 mg/dL (1.8-2.4); POTASSIUM 4.2 mmol/L (3.5-5.1)
[2017-02-06 04:17] VITALS: BP 111/53
[2017-02-06 04:51] LABS: ABSOLUTE NEUTROPHILS 7.5 thou/uL (1.4-8.2); TOTAL CELL COUNT 100
[2017-02-06 11:30] VITALS: BP 135/77
[2017-02-06] MEDS ORDERED: MUCINEX DM ER1 EAC1 PO (17:12)
[2017-02-06] MEDS ORDERED: NORVASC10 MG PO (17:12)
[2017-02-06] MEDS ORDERED: DOXYCYCLINE HYC50 MG PO (17:12)
[2017-02-06] MEDS ORDERED: HYDROCHLOROTHIA25 M2 PO (17:12)
[2017-02-06] MEDS ORDERED: KLOR-CON 1010 MEQ PO (17:12)
[2017-02-06 17:24] VITALS: BP 135/77
== END 2017-02-06 18:05 | disposition home or self-care (01) | DRG 189 ==
LOC: ER 23:16 → EROBS 02-04 00:53 → 2N 02-04 00:53 → ENTRNSPT 02-06 17:54 → 2N 02-06 18:05
PROVIDERS: Emergency Medicine; Internal Medicine Geriatric Medicine; Internal Medicine Pulmonary Disease; Nurse Practitioner Acute Care
DX: J96.21 Acute and chronic respiratory failure with hypoxia (principal); J18.9 Pneumonia, unspecified organism; J44.0 Chronic obstructive pulmonary disease with (acute) lower respiratory infection; J44.1 Chronic obstructive pulmonary disease with (acute) exacerbation; I10 Essential (primary) hypertension; H35.30 Unspecified macular degeneration; I27.20 Pulmonary hypertension, unspecified; H40.9 Unspecified glaucoma; Z90.711 Acquired absence of uterus with remaining cervical stump; Z87.891 Personal history of nicotine dependence; Z79.899 Other long term (current) drug therapy; Z82.49 Family history of ischemic heart disease and other diseases of the circulatory system; Z83.3 Family history of diabetes mellitus; Z79.82 Long term (current) use of aspirin
CPT/HCPCS: 10081

== ENCOUNTER → 2017-02-13 | Outpatient (CLI) | payer OTHER ==
[~2017-02-13] MED LIST changes: +DOXYCYCLINE HYC50 MG PO; +MUCINEX DM ER1 EAC1 PO
== END ==
LOC: NUC 07:37
DX: R74.8 Abnormal levels of other serum enzymes (principal); R06.00 Dyspnea, unspecified

== ENCOUNTER → 2017-02-27 | Outpatient (CLI) | payer OTHER ==
[~2017-02-27] VITALS: Ht 154.9 cm; Wt 73.5 kg
[~2017-02-27] MED LIST changes: +LATANOPROST 0.2.5 ML OPHTHALMIC
--- NOTE | ~2017-02-27 | CATHLAB ---
[facility] [address] [place] [address] INVASIVE PROCEDURE REPORT Name: RAMIRO VAZ Room #: REG [facility]#: [id number] Admission: 02/27/17 Attend Phys: Bakari Dutton MD Discharge: Date of : 40 Date of Service: 02/27/17 1310 Report #: [id number] THIS REPORT FOR: //name// APPROVED REPORT Patient Details Patient Status: Out-Patient Room #: The patient is a 76 year-old female Event Personnel Bakari Dutton Servicenow Administrator, Joe Hinson RN, Meg Joya RN RN, Sal Art RN Monitor, Meghana Oleary Scrub Procedures Performed Art Access - R femoral artery* Left Heart Cath w/or w/o Coronaries [id number] [facility] [address] Initial Mod Sed Same Phys/QHP Gr5y [id number] Indication Dyspnea, Positive stress test Risk Factors Chronic Lung DiseaseHypercholesterolemia, Hypertension Procedure Narrative The patient was brought electively to the Cardiac Catheterization Laboratory and was prepped and draped in a sterile manner. The Right Groin^ was infiltrated with 1% Lidocaine subcutaneous anesthesia. A PINNACLE 4FR Sheath #[id number] sheath was inserted into the RFA^. Coronary angiography was performed using coronary diagnostic catheters. The right coronary system was accessed and visualized with a JR 4 catheter. The left coronary system was accessed and visualized with a JL 4 catheter. The left ventricle was accessed and visualized with a Pigtail catheter. Left ventricular/Aortic Valve gradient assessed via catheter pullback. Left ventriculogram was performed in MÉNDEZ projection. Hemostasis was obtained with manual pressure following sheath removal without any complications. The patient tolerated the procedure well and there were no complications associated with the procedure. There was no hematoma. Intraoperative Conscious Sedation Sedation start time: 10:36 Case end Time: 10:54 Versed 1.5 mg [facility] [place] [address] INVASIVE PROCEDURE REPORT Name: RAMIRO VAZ Room #: REG [facility]#: [id number] Admission: 02/27/17 Attend Phys: Bakari Dutton MD Discharge: Date of : 40 Date of Service: 02/27/17 1310 Report #: [id number] Fluoro Time: 1.50 minutes Dose: DAP 3113.09 cGycm2 444 mGy Contrast Type and Amount: Omnipaque 90 ml Coronary Angiography The patient's coronary anatomy is right dominant. Diagnostic Cath Left Main Large-caliber vessel, with no flow-limiting lesions. LAD Moderate to large size caliber vessel, traveling down the anterior wall and wrapping around the apex. There is only mild disease in the proximal segment, less than 20%. Circumflex Moderate to large size caliber vessel, with mild disease in the proximal segment, 20%. OM1 Patent vessel, with no flow-limiting lesions. OM2 Patent vessel, with no flow-limiting lesions. Right Coronary Dominant vessel, with mild disease in the mid segment, 30%. R PDA Patent vessel, with no flow-limiting lesions. RPLV Patent vessel, with no flow-limiting lesions. Ramus Small caliber vessel, with no flow-limiting lesions. Left Ventriculography The left ventricle is mildly dilated in size with decreased contractility. The left ventricular ejection fraction is estimated to be 40-45%. Hemodynamics The aortic pressure is 128/60 mmHg with a mean of 83 mmHg. The left ventricular pressure is 134/16 mmHg with a mean of mmHg. The left ventricular end diastolic pressure is 36 mmHg. Conclusion 1. Mild, nonobstructive CAD. 2. Mild to moderate cardiomyopathy. 3. Recommend medical therapy. <ELECTRONICALLY SIGNED> By: Bakari Dutton MD 02/27/17 1310 09 09 Bakari Dutton MD /INF
--- NOTE | ~2017-02-27 | EKG ---
[place] [address] [address] [facility] [place] [address] ELECTROCARDIOGRAM REPORT Name: RAMIRO VAZ Room #: REG [facility]#: [id number] Admission: 02/27/17 Attend Phys: Bakari Dutton MD Discharge: Date of : 40 Report #: [id number] THIS REPORT FOR: //name// [facility] Test Date: 2017-02-27 Test Time: 08:53:18 Pat Name: RAMIRO VAZ Department: Room: Gender: F Credit Control Assistant: Tayler RAY : 1940 Requested By: Bakari Dutton Order Number: [id number] MD: Raul Brown Measurements Intervals [place] Rate: 89 P: 71 NM: 157 QRS: 31 QRSD: 76 T: 53 QT: 376 QTc: 458 Interpretive Statements Sinus rhythm No significant abnormality Compared to ECG 02/04/2017 00:36:34 Sinus tachycardia no longer present Electronically Signed On 02-27-2017 17:09:[address] SWEEPER OPERATOR by Raul Brown [email or web address] <ELECTRONICALLY SIGNED> By: Raul Brown MD, [facility]ED WITH [facility] 02/27/17 1709 0853 0853 Raul Brown MD, FACC /EPI
[2017-02-27 09:01] LABS: HEMATOCRIT 36.3 % (37.0-47.0); HEMOGLOBIN 11.7 gm/dL (12.0-15.0); MCH 30.5 pg (26.0-34.0); MCHC 32.3 g/dL (28.0-37.0); MCV 94.4 fL (80.0-100.0); RBC 3.84 mil/uL (4.20-5.00); RDW 13.8 % (10.5-14.5); WBC 5.1 thou/uL (4.0-11.0)
[2017-02-27 09:07] VITALS: BP 127/62
[2017-02-27 09:11] LABS: CALCIUM 9.6 mg/dL (8.5-10.1); CREATININE 0.7 mg/dL (0.6-1.0); POTASSIUM 3.8 mmol/L (3.5-5.1)
== END | disposition home or self-care (01) ==
LOC: CATH 07:44
PROVIDERS: Internal Medicine Cardiovascular Disease
DX: I25.10 Atherosclerotic heart disease of native coronary artery without angina pectoris (principal); I42.9 Cardiomyopathy, unspecified; R00.0 Tachycardia, unspecified; J44.9 Chronic obstructive pulmonary disease, unspecified; I10 Essential (primary) hypertension; Z82.49 Family history of ischemic heart disease and other diseases of the circulatory system; E78.5 Hyperlipidemia, unspecified; Z87.891 Personal history of nicotine dependence

== ENCOUNTER 2017-09-25 15:26 | Inpatient (IN) | payer OTHER ==
[~2017-09-25] VITALS: Ht 152.4 cm; Wt 80.7 kg
--- NOTE | ~2017-09-25 | 2DMMODE ---
[facility] [address] [place] [address] 2 D/M-MODE ECHOCARDIOGRAM Name: RAMIRO VAZ Room #: 416-P ADM IN M.R.#: [id number] Admission: 09/25/17 Attend Phys: David Delgado MD Discharge: Date of : 40 Date of Service: 09/26/17 1039 Report #: [id number] THIS REPORT FOR: //name// APPROVED REPORT Study performed: 09/26/2017 09:50:13 EXAM: Comprehensive 2D, Doppler, and color-flow Echocardiogram Patient Location: Echo lab Room #: [facility] Status: routine BSA: 1.78 HR: 96 bpm BP: 122/73 mmHg Rhythm: NSR Other Information Study Quality: Adequate Indications Short of breath, PHTN, elevated troponin. Hx: COPD, CAD, HTN, CM. 2D Dimensions RVDd: 36.60 mm LVEF(%): 44.66 (>50%) IVSd: 11.57 (7-11mm) LVOT Diam: 20.33 (18-24mm) LVDd: 42.23 mm PWd: 9.53 (7-11mm) LVDs: 32.97 (25-40mm) Aortic Root: 32.40 mm Gaffney's LVEF: 44.66 % Volumes Left Atrial Volume (Systole) Single Plane 4CH: 45.52 mL Single Plane 2CH: 52.19 mL LA ESV Index: 29.00 mL/m2 Aortic Valve AoV Peak Domenic.: 2.15 m/s AO Peak Gr.: 18.57 mmHg LVOT Max P.90 mmHg AO Mean Gr.: 8.57 mmHg AO V2 Mean: 1.40 m/s LVOT Max V: 1.11 m/s AO V2 VTI: 38.27 cm BERTHA Vmax: 1.67 cm2 Mitral Valve [facility] [place] [address] 2 D/M-MODE ECHOCARDIOGRAM Name: RAMIRO VAZ Room #: 416-P [facility] IN ..#: [id number] Admission: 09/25/17 Attend Phys: David Delgado MD Discharge: Date of : 40 Date of Service: 09/26/17 1039 Report #: [id number] E/A Ratio: 0.5 MV Decel. Time: 334.51 ms MV E Max Domenic.: 0.72 m/s MV A Domenic.: 1.43 m/s MV PHT: 97.01 ms IVRT: 96.89 ms Pulmonary Vein P Vein S: 0.53 m/s P Vein A: 0.38 m/s P Vein D: 0.27 m/s P Vein A Dur.: 100.3 msec P Vein S/D Ratio: 1.96 Tricuspid Valve TR Peak Domenic.: 2.73 m/s RAP Estimate: 5.00 mmHg TR Peak Gr.: 29.87 mmHg PA Pressure: 35.00 mmHg Left Ventricle The left ventricle is normal size. Mild basal septal hypertrophy is present. Left ventricular systolic function is mildly decreased. LVEF is 45-50%. Mild diastolic dysfunction is present (impaired relaxation pattern). Right Ventricle The right ventricle is normal size. The right ventricular systolic function is normal. Atria The left atrium size is normal. The right atrium size is normal. Aortic Valve Aortic valve is sclerotic. Trace aortic regurgitation. No hemodynamically significant valvular aortic stenosis. Mitral Valve Mitral valve leaflets are thickened. Mild mitral annular calcification. Trace mitral regurgitation. No evidence of mitral valve stenosis. Tricuspid Valve The tricuspid valve is normal in structure. Trace tricuspid regurgitation. Estimated PAP is 35mmHg. Pulmonic Valve Pulmonic valve is not well visualized. [address] [address] 2 D/M-MODE ECHOCARDIOGRAM Name: RAMIRO VAZ Room #: 416-P [facility] IN [facility]#: [id number] Admission: 09/25/17 Attend Phys: David Delgado MD Discharge: Date of : 40 Date of Service: 09/26/17 1039 Report #: [id number] Great Vessels The aortic root is normal in size. Ascending aorta is not well visualized. IVC is normal in size and collapses >50% with inspiration. Pericardium There is no pericardial effusion. <Conclusion> The left ventricle is normal size. Left ventricular systolic function is mildly decreased. Mild diastolic dysfunction is present (impaired relaxation pattern). The right ventricle is normal size. The left atrium size is normal. Aortic valve is sclerotic. Trace aortic regurgitation. Trace mitral regurgitation. Trace tricuspid regurgitation. Estimated PAP is 35mmHg. <ELECTRONICALLY SIGNED> By: Bakari Dutton MD 09/26/17 1039 1039 1039 Bakari Dutton MD /INF
--- NOTE | ~2017-09-25 | HC ---
[facility] [place] [address] CONSULTATION Name: RAMIRO VAZ Room #: 416-P ADM IN M.R.#: [id number] Admission: 09/25/17 Attend Phys: David Delgado MD Discharge: Date of : 40 Report #: [id number] THIS REPORT FOR: //name// CC: David Quiñonez DATE OF SERVICE: 09/25/2017 REASON FOR CONSULTATION: 1. Hypoxia, acute on chronic respiratory failure. 2. Treated chronic obstructive pulmonary disease exacerbation. 3. Elevated troponin. 4. Hypertension. PLAN: Corticosteroids, CT PE protocol, aerosol therapy. No antibiotic at present. May need to control blood pressure better. HOME MEDICATIONS: Per primary. HISTORY OF PRESENT ILLNESS: A very pleasant 77-year-old female relates she was in her usual state of health, went to [place] for the weekend and since then, has not felt well. On her flight, she did not use oxygen, does not recall falling asleep. She feels like she can breathe shallow. No definite chest pains or palpitations. Did not feel odd on the flight. This has occurred over the last few hours. PAST MEDICAL HISTORY: SURGERIES: Partial hysterectomy. MEDICATIONS: Included amlodipine, potassium, hydrochlorothiazide, albuterol, calcium, latanoprost, aspirin. SOCIAL HISTORY: Positive tobacco in past. Negative ETOH. FAMILY HISTORY: Negative for early pulmonary disease. REVIEW OF SYSTEMS: Complains of some neck pain that radiates down the left arm, especially when she moves her neck. She relates she has had this in the past. It is not related to chest pain. History of glaucoma, macular degeneration, right eye, pulmonary hypertension, COPD and hypertension. PHYSICAL EXAMINATION: VITAL SIGNS: Temp 98.3, pulse 89, respirations 15, BP 180/81. EYES: Negative icterus. NECK: Negative JVD. Trachea midline. Nontender. Radial pulses equal. [facility] [address] [place] [address] CONSULTATION Name: RAMIRO VAZ Room #: [address] [place] [address] [place] [facility].#: [id number] Admission: 09/25/17 Attend Phys: David Delgado MD Discharge: Date of : 40 Report #: [id number] LUNGS: Showed decreased breath sounds. No wheeze or rhonchi. HEART: Regular. ABDOMEN: Bowel sounds present. EXTREMITIES: Showed no calf tenderness or edema, some chronic changes. LABORATORY DATA: D-dimer 1.29. pH 7.39, pCO2 of 59, pO2 of 53, bicarbonate 35 on 3 liters. Lactate 1.01. BUN 15, creatinine 0.8. Troponin 0.21. White count 5.7, hemoglobin 12.4, platelets 222. No bands. Chest x-ray showed no acute. EKG report was sinus, left ventricular hypertrophy. Because she relates Dr. Dutton has taken her off some of her blood pressure medications, we will ask him also to revisit while in the hospital. Echo in 2017 showed a right atrial pressure of 40. She had a cardiac catheterization showing mild nonobstructive coronary artery disease, mild to moderate cardiomyopathy, ejection fraction was 40-45%. <ELECTRONICALLY SIGNED> By: Thea Ly MD 09/26/17 1120 1758 2236 Thea Ly MD /nt
--- NOTE | ~2017-09-25 | EKG ---
[place] [address] [place] [address] ELECTROCARDIOGRAM REPORT Name: ТАТЬЯНАHAYDEENICHOLEMARIELLA MAIK Room #: [facility]#: [id number] Admission: Attend Phys: Discharge: Date of : 40 Report #: [id number] THIS REPORT FOR: //name// [facility] [place] ED Test Date: 2017-09-25 Test Time: 15:32:49 Pat Name: RAMIRO VAZ Department: Room: Gender: F Reuse Technician: MZOOYonas : 1940 Requested By: Odilia Wooten Order Number: [id number] MD: Raul Brown Measurements Intervals [place] Rate: 86 P: 70 NV: 137 QRS: 48 QRSD: 80 T: 63 QT: 405 QTc: 485 Interpretive Statements Sinus rhythm Consider left ventricular hypertrophy Compared to ECG 02/27/2017 08:53:18 No significant changes Electronically Signed On 09-25-2017 15:40:48 CDT by Raul Brown [email or web address] <ELECTRONICALLY SIGNED> By: Raul Brown MD, [facility] 09/25/17 1540 1532 1532 Raul Brown MD, FACC /EPI
[2017-09-25 15:27] VITALS: BP 191/95
[2017-09-25 15:58] LABS: ABSOLUTE NEUTROPHILS 3.2 thou/uL (1.4-8.2); BASOPHILS 0.7 % (0.0-2.0); EOSINOPHILS 2.9 % (0.0-3.0); HEMATOCRIT 38.2 % (37.0-47.0); HEMOGLOBIN 12.4 gm/dL (12.0-15.0); LYMPHOCYTES 30.1 % (24.0-44.0); MCH 31.8 pg (26.0-34.0); MCHC 32.6 g/dL (28.0-37.0); MCV 97.6 fL (80.0-100.0); MONOCYTES 10.6 % (1.0-8.0); PLATELET COUNT 222 thou/uL (150-400); POLYS 55.7 % (36.0-66.0); RBC 3.91 mil/uL (4.20-5.00); RDW 13.3 % (10.5-14.5); WBC 5.7 thou/uL (4.0-11.0)
[2017-09-25 16:07] LABS: CALCIUM 9.8 mg/dL (8.5-10.1); CREATININE 0.8 mg/dL (0.6-1.0); POTASSIUM 4.2 mmol/L (3.5-5.1)
[2017-09-25 16:14] LABS: TROPONIN-I 0.21 ng/mL (<0.06)
[2017-09-25] MEDS ORDERED: CARVEDILOL3.125 MG PO (17:00)
[2017-09-25] MEDS ORDERED: HYDROCHLOROTHIA25 M2 PO (17:01)
[2017-09-25 17:08] LABS: BE(vivo) 8.6 mmol/L (-2 to +3); HCO3 35.5 mmol/L (22.0-26.0); PCO2 59.5 mmHg (35.0-45.0); pH 7.394 (7.360-7.450); sO2 86.5 % (92.0-98.0)
[2017-09-25 17:09] LABS: PO2 53.1 mmHg (80.0-100.0)
[2017-09-25 18:08] LABS: ALBUMIN 3.4 g/dL (3.4-5.0); DIRECT BILIRUBIN 0.1 mg/dL (<0.1-0.3); TOTAL BILIRUBIN 0.3 mg/dL (<0.1-1.0); TOTAL PROTEIN 7.2 g/dL (6.4-8.2)
[2017-09-25 19:10] VITALS: BP 180/81
[2017-09-25 19:31] VITALS: BP 186/67
[2017-09-25 19:48] LABS: HEMATOCRIT 38.9 % (37.0-47.0); MCH 32.6 pg (26.0-34.0); MCHC 33.4 g/dL (28.0-37.0); MCV 97.7 fL (80.0-100.0); RBC 3.98 mil/uL (4.20-5.00); RDW 13.4 % (10.5-14.5); WBC 5.7 thou/uL (4.0-11.0)
[2017-09-25 20:00] VITALS: BP 187/88
[2017-09-25 20:56] LABS: PROTIME 9.9 Seconds (9.3-11.4)
[2017-09-25 23:33] VITALS: BP 146/74
[2017-09-26 03:31] LABS: PROTIME 10.5 Seconds (9.3-11.4)
[2017-09-26 03:32] LABS: APTT 79.5 Seconds (24.5-32.8)
[2017-09-26 04:00] VITALS: BP 142/73
[2017-09-26 05:59] LABS: HEMATOCRIT 37.5 % (37.0-47.0); HEMOGLOBIN 12.2 gm/dL (12.0-15.0); MCH 31.8 pg (26.0-34.0); MCHC 32.5 g/dL (28.0-37.0); MCV 97.7 fL (80.0-100.0); RBC 3.83 mil/uL (4.20-5.00); RDW 13.1 % (10.5-14.5); WBC 5.7 thou/uL (4.0-11.0)
[2017-09-26 06:06] LABS: CALCIUM 9.3 mg/dL (8.5-10.1); CREATININE 0.7 mg/dL (0.6-1.0); POTASSIUM 4.4 mmol/L (3.5-5.1)
[2017-09-26 06:59] LABS: BE(vivo) 8.1 mmol/L (-2 to +3); HCO3 35.6 mmol/L (22.0-26.0); PCO2 63.5 mmHg (35.0-45.0); PO2 86.3 mmHg (80.0-100.0); pH 7.367 (7.360-7.450)
[2017-09-26 08:59] VITALS: BP 122/73
[2017-09-26 16:40] VITALS: BP 114/62
[2017-09-26 19:37] VITALS: BP 122/52
[2017-09-27 04:32] VITALS: BP 124/48
[2017-09-27 08:01] VITALS: BP 135/68
[2017-09-27 15:15] VITALS: BP 145/69
[2017-09-27 20:19] VITALS: BP 141/64
[2017-09-28 03:34] VITALS: BP 135/62
[2017-09-28 04:28] LABS: HEMATOCRIT 39.3 % (37.0-47.0); HEMOGLOBIN 12.9 gm/dL (12.0-15.0); MCH 31.8 pg (26.0-34.0); MCHC 32.7 g/dL (28.0-37.0); MCV 97.3 fL (80.0-100.0); RBC 4.04 mil/uL (4.20-5.00); WBC 10.1 thou/uL (4.0-11.0)
[2017-09-28 07:53] VITALS: BP 128/64
[2017-09-28 16:48] VITALS: BP 144/78
[2017-09-28 19:42] VITALS: BP 133/61
[2017-09-29 07:25] VITALS: BP 145/77
[2017-09-29 07:57] LABS: ABSOLUTE NEUTROPHILS 8.4 thou/uL (1.4-8.2); HEMATOCRIT 39.8 % (37.0-47.0); HEMOGLOBIN 13.2 gm/dL (12.0-15.0); LYMPHOCYTES 5.8 % (24.0-44.0); MCH 31.8 pg (26.0-34.0); MCHC 33.1 g/dL (28.0-37.0); MONOCYTES 3.2 % (1.0-8.0); PLATELET COUNT 264 thou/uL (150-400); RBC 4.15 mil/uL (4.20-5.00); RDW 13.2 % (10.5-14.5); WBC 9.2 thou/uL (4.0-11.0)
[2017-09-29 08:15] LABS: ALBUMIN 3.1 g/dL (3.4-5.0); ANION GAP < 0 mmol/L (7-16); BUN 28 mg/dL (7-18); CALCIUM 9.3 mg/dL (8.5-10.1); CHLORIDE 100 mmol/L (98-107); CO2 39 mmol/L (21-32); CREATININE 0.8 mg/dL (0.6-1.0); GLUCOSE 131 mg/dL (74-106); MAGNESIUM 2.1 mg/dL (1.8-2.4); POTASSIUM 4.3 mmol/L (3.5-5.1); SGOT 15 U/L (15-37); SGPT 28 U/L (30-65); SODIUM 138 mmol/L (136-145); TOTAL BILIRUBIN 0.4 mg/dL (<0.1-1.0); TOTAL PROTEIN 6.9 g/dL (6.4-8.2)
[2017-09-29 12:53] VITALS: BP 143/77
[2017-09-29] MEDS ORDERED: PREDNISONE 20 M20 M1 PO (15:23)
[2017-09-29] MEDS ORDERED: AUGMENTIN 500-1 EACH PO (15:23)
[2017-09-29] MEDS ORDERED: COZAAR100 MG PO (15:23)
[2017-09-29] MEDS ORDERED: SPIRONOLACTONE25 M1 PO (15:23)
[2017-09-29 17:11] VITALS: BP 143/77
== END 2017-09-29 18:03 | disposition home health service (06) | DRG 189 ==
LOC: ER 15:26 → 4N 16:58 → EROBS 16:58 → 4N 19:31 → SICU 09-28 16:21 → ENTRNSPT 09-29 17:44 → SICU 09-29 18:03
PROVIDERS: Emergency Medicine; Hospitalist; Internal Medicine Pulmonary Disease; Nurse Practitioner Acute Care
DX: J96.21 Acute and chronic respiratory failure with hypoxia (principal); I42.9 Cardiomyopathy, unspecified; E87.2 Acidosis; J47.1 Bronchiectasis with (acute) exacerbation; I10 Essential (primary) hypertension; H54.61 Unqualified visual loss, right eye, normal vision left eye; I25.10 Atherosclerotic heart disease of native coronary artery without angina pectoris; H40.9 Unspecified glaucoma; E78.5 Hyperlipidemia, unspecified; I27.20 Pulmonary hypertension, unspecified; J96.22 Acute and chronic respiratory failure with hypercapnia; I16.0 Hypertensive urgency; H35.30 Unspecified macular degeneration; Z82.49 Family history of ischemic heart disease and other diseases of the circulatory system; Z83.3 Family history of diabetes mellitus; Z90.710 Acquired absence of both cervix and uterus; Z80.9 Family history of malignant neoplasm, unspecified; Z87.891 Personal history of nicotine dependence; Z79.899 Other long term (current) drug therapy; Z79.82 Long term (current) use of aspirin; Z99.81 Dependence on supplemental oxygen
CPT/HCPCS: 10790; 15000

== ENCOUNTER → 2018-01-22 | Outpatient (CLI) | payer OTHER ==
[~2018-01-22] MED LIST changes: +AUGMENTIN 500-1 EACH PO; +CARVEDILOL3.125 MG PO; +COZAAR100 MG PO; +SPIRONOLACTONE25 M1 PO
--- NOTE | ~2018-01-22 | SLE ---
[facility] [place] [address] [place] [address] POLYSOMNOGRAPHY STUDY Name: RAMIRO VAZ Room #: REG [facility]#: [id number] Admission: 01/22/18 Attend Phys: Thea Ly MD Discharge: Date of : 40 Report #: [id number] THIS REPORT FOR: //name// CC: Thea Doran MD DATE OF SERVICE: 01/22/2018 ATTENDING PHYSICIAN: Dr. Reji Doran. The patient is a 77-year-old who weighs 182 pounds and 60 inches tall with a BMI of 35.5. The patient's [place] score was 5/24. The patient underwent a split night study at [facility]. During the night study, the patient spent 483 minutes in bed and slept for 322 minutes with a sleep efficiency of 66.8%. Sleep latency was 51.6 minutes with a REM latency of 106.6 minutes. Overall sleep architecture showed normal stage 1 sleep, increased stage 2 sleep, absent slow wave and slightly reduced REM sleep, which was 16.7% of the total sleep time. During the initial diagnostic portion of the study, the patient spent 214 minutes in bed and slept for 118 minutes. During that time, the patient had no apneas, but 61 hypopneas. The patient's apnea-hypopnea index was 31 per hour with a REM index of 84 per hour and absent supine index due to lack of supine sleep. EKG monitoring revealed an average heart rate of 82 beats per minute with a maximum of 107 beats per minute. PACs were seen throughout, but no sustained arrhythmias were observed. PLMS were seen at an index of only 3 per hour and none caused EEG arousals. Nocturnal oximetry study during the diagnostic portion revealed an average oxygen saturation of 86% with a lowest of 66%. 109 minutes were spent at an oxygen saturation of less than 89%. The patient met the criteria for CPAP initiation and it was started at 9 cm water and titrated up to 18 cm water. At the final pressure, the patient slept for 54 minutes. The patient had supine sleep throughout as well as a short REM period was observed. The patient's AHI was reduced to only 2.2 per hour and oxygen saturations remained above 88%. IMPRESSION: 1. Severe sleep apnea-hypopnea syndrome at an apnea-hypopnea index of 31 per [facility] [address] [place] [address] POLYSOMNOGRAPHY STUDY Name: VAZRAMIRO MAIK Room #: REG [facility]#: [id number] Admission: 01/22/18 Attend Phys: Thea Ly MD Discharge: Date of : 40 Report #: [id number] hour with worsening apnea-hypopnea index to 84 per hour during REM sleep. 2. Nocturnal hypoxia secondary to obstructive sleep apnea, but resolved with CPAP. 3. No clinically significant periodic limb movements of sleep. 4. Abnormal EKG with premature atrial contractions. RECOMMENDATIONS: 1. CPAP at 18 cm water completely eliminated the patient's sleep apnea and should be used on a nightly basis. 2. Follow up in 4-6 weeks to assess compliance with CPAP and to document clinical improvement. 3. Weight loss is strongly advised. 4. Avoid ELECTRIC METER SETTER depressants. 5. Cautioned regarding driving until symptoms of sleep apnea have resolved with the use of CPAP. <ELECTRONICALLY SIGNED> By: Mitch Guadarrama MD 01/25/18 1720 1556 1627 Mitch Guadarrama MD /nt
== END ==
LOC: SLEEPLAB 15:08
DX: G47.33 Obstructive sleep apnea (adult) (pediatric) (principal); R09.02 Hypoxemia; R94.31 Abnormal electrocardiogram [ECG] [EKG]

== ENCOUNTER 2018-06-08 18:36 | Inpatient (IN) | payer OTHER ==
[~2018-06-08] VITALS: Ht 152.4 cm; Wt 78.9 kg
[2018-06-08 18:46] VITALS: BP 146/76
[2018-06-08 19:39] LABS: HEMATOCRIT 37.8 % (37.0-47.0); HEMOGLOBIN 12.1 gm/dL (12.0-15.0); MCH 30.7 pg (26.0-34.0); MCHC 31.9 g/dL (28.0-37.0); MCV 96.4 fL (80.0-100.0); RBC 3.92 mil/uL (4.20-5.00); RDW 12.5 % (10.5-14.5); WBC 6.2 thou/uL (4.0-11.0)
[2018-06-08 19:54] LABS: CREATININE 1.1 mg/dL (0.6-1.0); POTASSIUM 3.9 mmol/L (3.5-5.1)
[2018-06-08 20:02] LABS: HCO3 37.7 mmol/L (22.0-26.0); PCO2 59.3 mmHg (35.0-45.0); PO2 66.6 mmHg (80.0-100.0); pH 7.421 (7.360-7.450); sO2 93.1 % (92.0-98.0)
[2018-06-08 20:03] LABS: TROPONIN-I 0.13 ng/mL (<0.06)
[2018-06-08] MEDS ORDERED: ALBUTEROL2.5 MG/31 INH (21:36)
[2018-06-08] MEDS ORDERED: TYLENOL325 MG PO (21:36)
[2018-06-08] MEDS ORDERED: KLOR-CON 1010 MEQ PO (21:37)
[2018-06-08] MEDS ORDERED: LIPITOR 20 MG T20 M1 PO (21:37)
[2018-06-09] VITALS (8 sets, daily range): BP systolic 113–159; BP diastolic 50–87
--- NOTE | 2018-06-09 02:30 | NUR ---
ASSUMED CARE OF PATIENT FROM ER. ADMISSION COMPLETE. BECOMES EXTREMELY SOA EASILY. DENIES PAIN, N/V. LIVES WITH SON. BP SLIGHTLY ELEVATED ON ADMISSION, WITHIN NORMAL LIMITS ON RECHECK. POC GOALS ESTABLISHED, WILL CONTINUE TO MONITOR.
--- NOTE | 2018-06-09 08:32 | EKG ---
[place] [address] [facility] [place] [address] ELECTROCARDIOGRAM REPORT Name: ТАТЬЯНАRAMIRO ZAMUDIOTRUDE Room #: 241-P ADM IN M.R.#: [id number] ������������������ Admission: 06/08/18 ������������������ Attend Phys: Miguel Angel Greene Discharge: ������������������ Date of : 40 Report #: [id number] ����������������������������������������������������������������� [id number] THIS REPORT FOR: //name// [facility] ED Test Date: 2018-06-08 Test Time: 20:09:36 Pat Name: RAMIRO VAZ Department: Room: 241 Gender: F Divemaster: Sher HUSAIN : 1940 Requested By: Marcel Zuniga Order Number: [id number] MD: Raul Brown Measurements Intervals [place] Rate: 98 P: 67 NE: 140 QRS: 46 QRSD: 82 T: 72 QT: 374 QTc: 478 Interpretive Statements Sinus rhythm Ventricular premature complex Compared to ECG 09/25/2017 15:32:49 Ventricular premature complex(es) now present Electronically Signed On 06-09-2018 8:32:12 [employer] SUPERINTENDENT by Raul Brown [email or web address] ��������������������������������������������� <ELECTRONICALLY SIGNED> ���������������������������������������� By: Raul Brown MD, [facility] ��������������������������������������������� 06/09/18 0832 08 08 Raul Brown MD, FAC /EPI
--- NOTE | 2018-06-09 09:44 | 2DMMODE ---
[place] [address] 2 D/M-MODE ECHOCARDIOGRAM Name: RAMIRO VAZ Room #: 241-P ADM IN M.R.#: [id number] ������������� Admission: 06/08/18 ������������� Attend Phys: Miguel Angel Schuler Discharge: ��� ������������� ��� Date of : 40 Date of Service: 06/09/18 0943 �� Report #: [id number] �������� ��������������������������������������������[id number] THIS REPORT FOR: //name// APPROVED REPORT Study performed: 06/09/2018 08:04:59 EXAM: Comprehensive 2D, Doppler, and color-flow Echocardiogram Patient Location: ICU Room #: 241 Status: routine BSA: 1.76 HR: 83 bpm BP: 158/65 mmHg Rhythm: NSR Other Information Study Quality: Adequate Indications COPD Dyspnea CAD Hypertension/HDD 2D Dimensions RVDd: 29.25 mm IVSd: 10.02 (7-11mm) LVOT Diam: 19.56 (18-24mm) LVDd: 36.35 mm PWd: 9.65 (7-11mm) Ascending Ao: 32.28 (22-36mm) LVDs: 28.23 (25-40mm) Aortic Root: 30.75 mm IVC: 17.00 mm Volumes Left Atrial Volume (Systole) Single Plane 4CH: 57.37 mL Single Plane 2CH: 36.88 mL LA ESV Index: 29.00 mL/m2 Aortic Valve AoV Peak Domenic.: 1.91 m/s AO Peak Gr.: 14.64 mmHg LVOT Max P.00 mmHg LVOT Max V: 1.12 m/s BERTHA Vmax: 1.76 cm2 Mitral Valve [address] [address] 2 D/M-MODE ECHOCARDIOGRAM Name: RAMIRO VAZ Room #: 241-P [facility] IN ..#: [id number] ������������� Admission: 06/08/18 ������������� Attend Phys: Miguel Angel Schuler Discharge: ��� ������������� ��� Date of : 40 Date of Service: 06/09/18 0943 �� Report #: [id number] �������� ��������������������������������������������[id number] E/A Ratio: 0.7 MV Decel. Time: 270.81 ms MV E Max Domenic.: 0.85 m/s MV A Domenic.: 1.29 m/s MV PHT: 78.54 ms IVRT: 124.57 ms Pulmonary Valve PV Peak Domenic.: 0.83 m/s PV Peak Gr.: 2.77 mmHg Pulmonary Vein P Vein S: 0.45 m/s P Vein A: 0.31 m/s P Vein D: 0.23 m/s P Vein A Dur.: 101.5 msec P Vein S/D Ratio: 1.96 Tricuspid Valve TR Peak Domenic.: 2.50 m/s TR Peak Gr.: 25.10 mmHg PA Pressure: 30.00 mmHg Left Ventricle The left ventricle is normal size. There is normal LV segmental wall motion. There is normal left ventricular wall thickness. The left ventricular systolic function is normal. The left ventricular ejection fraction is within the normal range. LVEF is 55-60%. Mild diastolic dysfunction is present (impaired relaxation pattern). Right Ventricle The right ventricle is normal size. The right ventricular systolic function is normal. Atria The left atrium size is normal. The right atrium size is normal. Aortic Valve The aortic valve is mildly calcified Trace aortic regurgitation. There is mild aortic valvular stenosis. Mitral Valve Mild mitral annular calcificaiton There is no mitral valve regurgitation noted. No evidence of mitral valve stenosis. Tricuspid Valve The tricuspid valve is normal in structure. There is trace tricuspid [address] [place] [address] 2 D/M-MODE ECHOCARDIOGRAM Name: VAZRAMIRO MAIK Room #: [address] [place] [address] [place] .R.#: [id number] ������������� Admission: 06/08/18 ������������� Attend Phys: Miguel Angel Schuler Discharge: ��� ������������� ��� Date of : 40 Date of Service: 06/09/18 0943 �� Report #: [id number] �������� ��������������������������������������������[id number] regurgitation. Estimated PAP 30 mmHg. There is no pulmonary hypertension. Pulmonic Valve The pulmonary valve is normal in structure. There is no pulmonic valvular regurgitation. Great Vessels The aortic root is normal in size. IVC is normal in size and collapses >50% with inspiration. Pericardium There is no pericardial effusion. <Conclusion> The left ventricular systolic function is normal. There is normal LV segmental wall motion. LVEF is 55-60%. Mild diastolic dysfunction The aortic valve is mildly calcified, mildly stenotic. Trace aortic regurgitation. Mild mitral annular calcificaiton. No mitral valve regurgitation noted. There is trace tricuspid regurgitation. Estimated pulmonary artery pressure of 30 mmHg. There is no pericardial effusion. ��������������������������������������������� <ELECTRONICALLY SIGNED> ���������������������������������������� By: Raul Brown MD, FACC ��������������������������������������������� 06/09/18 0943 Raul Brown MD, FACC /INF
--- NOTE | 2018-06-09 12:41 | NUR ---
INITIAL ASSESSMENT: Received consult for discharge planning and assistance with completing AD. SW reviewed chart and spoke with nursing and attending physician. Pt was admitted from home due to exacerbation of COPD. SW met with pt at bedside. Introduced role of SW. Pt is alert/orientated x 4. Pt reports she lives at home with her son, Be ([phone]) in [place]. Pt was living at [facility] until April 29, 2018, when she moved in with her son. Prior to admission, pt was using a cane to assist with ambulation. 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 [facility] Pt is normally on 3L continuously. Pt has a concentrator and portable tanks. Pt has Medicaid in-home services 3 hrs 15 mins/day x 5 days/week. Pt's PCP is Dr. Roberto Quiñonez. SW discussed completion of DPOA document while in the hospital. Pt states she will think about it and notify nursing or SW if she wants to complete document. Plan is for pt to return home when medically stable. SW is following to assist as needed with discharge planning.
--- NOTE | 2018-06-09 19:12 | NUR ---
PT ALERT AND ORIENTED X4. AMBULATING IN ROOM WITH STANDBY ASSISTANCE. UP TO CHAIR MOST OF THE DAY. VSS. NSR ON MONITOR. COMPLAINING OF HEADACHE TONIGHT. GIVEN TYLENOL. WILL CONTINUE TO MONITOR PATIENT.
--- NOTE | 2018-06-10 05:52 | NUR ---
PT AOX4. ON 3L NC. C/O HEADACHE. TYLENOL GIVEN. UP WITH STANDBY. TOLERATES ACTIVITY. NO COMPLAINS CURRENTLY. SLOWLY PROGRESSING TOWARDS GOALS
[2018-06-10 07:19] VITALS: BP 124/60
[2018-06-10 09:10] VITALS: BP 141/72
--- NOTE | 2018-06-10 18:08 | NUR ---
Assumed care of patient at 0700. Patient resting comfortably in bed. On baseline 3L. Denies shortness of breath unless up with activity. No pain or other concerns. Patient up to BSC with SBA. Possible discharge soon. Continue to monitor.
[2018-06-10 22:44] VITALS: BP 121/52
--- NOTE | 2018-06-11 05:02 | NUR ---
AOX4,. ON 3L NC. TOLERATES ACTIVITY APPROPIATELY. ON BIPAP WHILE SLEEPING. DENIES PAIN. UP WITH MINIMAL ASSIST. FREE FROM FALLS DURING THE NIGHT. PT CALLS APPROPIATELY. NO COMPLAINS PRESENTLY. WILL CONTINUE TO MONITOR.
[2018-06-11 06:13] VITALS: BP 120/57
[2018-06-11 11:57] VITALS: BP 116/52
--- NOTE | 2018-06-11 14:01 | NUR ---
PT IS ALERT AND ORIENTED X4. LUGNGS ARE CLEAR TO DIMINSIHED. NSR ON THE LAPEL PADDER BLINDSTITCH. EATING A CARB CONTROL DIET AND TOLERATING WELL. PHYSICAL THERAPY PT UP IN HALLWAY WALKING. DENIES ANY PAIN. PLEASANT. ON 3 LITERS NASAL CANULA. DENIES SOB AT THIS TIME. VS STABLE. WILL CONTINUE TO ASSESS AND MONITOR PER NURSING.
[2018-06-11 16:08] VITALS: BP 108/48
--- NOTE | 2018-06-11 16:47 | NUR ---
SW reviewed chart and spoke with attending physician. Pt is progressing towards goals for discharge. IV lasix changed to PO. Pt remains on IV steroids. Plan is for pt to discharge home in 1-2 days with services. CAROLE is following to assist as needed with discharge planning.
--- NOTE | 2018-06-11 19:47 | HC ---
[facility] [place] [address] CONSULTATION Name: RAMIRO VAZTRUDE Room #: [facility] [place]note 2[place]P ADM IN M.R.#: [id number] Admission: 06/08/18 ������������������ Attend Phys: Lisa Guadarrama MD Discharge: ������������������ Date of : 40 Report #: [id number] THIS REPORT FOR: //name// CC: Lisa Quiñonez REFERRING PHYSICIAN: Dr. Jeffrey. REASON FOR REFERRAL: COPD. HISTORY OF PRESENT ILLNESS: The patient is a 78-year-old -German female who presented to the Emergency Department with progressive dyspnea. A pulmonary consultation was requested. The patient is known to this physician. She is followed longitudinally for COPD, bronchiectasis, chronic hypoxic respiratory failure, pulmonary hypertension and sleep apnea. She has severe sleep apnea with an AHI around 31 events per hour. She requires a CPAP of 18 cm H2O. However, the patient has not been tolerant to using the CPAP on a regular basis. She has been seen in the office for the same reason with progressive dyspnea. Overall, she had been improving somewhat until more recently where she started to develop increasing dyspnea. Otherwise, denies any fever, night sweats or chills, chest pain, or productive cough. PAST MEDICAL HISTORY: Remarkable for COPD, bronchiectasis, pulmonary hypertension, chronic hypoxic respiratory failure requiring 1-2 liters of O2 with exertion, MAXWELL. She also has a history of coronary artery disease, echocardiogram from 2017 showed ejection fraction of 40-45%, hypertension, history of myocardial infarction, macular degeneration involving the right eye. PAST SURGICAL HISTORY: Include partial hysterectomy with previous cardiac catheterization. ALLERGIES: None to medications. HOME MEDICATIONS: Include nebulized DuoNeb q.i.d. p.r.n., Proventil MDI 2 puffs p.r.n., aspirin, Lipitor, Alphagan, Coreg, multivitamins, HydroDiuril, DuoNeb, Cozaar, potassium supplements. FAMILY HISTORY: Notable for both parents , reasons not specified. Both parents had hypertension along with heart disease in the family. SOCIAL HISTORY: She is . She has smoked for about 59 years, quit in 2017. She smoked about 1-1/2 pack a day. She drinks socially. [facility] [address] [place] [address] CONSULTATION Name: RAMIRO VAZ Room #: [address] [place] [address] [place] [facility].#: [id number] Admission: 06/08/18 ������������������ Attend Phys: Lisa Guadarrama MD Discharge: ������������������ Date of : 40 Report #: [id number] REVIEW OF SYSTEMS: As mentioned above, otherwise 10-point system review was negative. PHYSICAL EXAMINATION: GENERAL: She is awake, alert, in no distress. She appears mildly dyspneic. VITAL SIGNS: Temperature is 98 degrees Fahrenheit, pulse 91, respiratory rate is 30, blood pressure is 124/60 mmHg and saturation is 92%. HEENT: Normocephalic, atraumatic. NECK: Supple, without lymphadenopathy or thyromegaly. CHEST: Breath sounds are fair with mild expiratory wheezes. CARDIOVASCULAR: Normal S1, S2. No murmurs or gallop. There is no JVD. There is no carotid bruit. Pulses are 2+/4+ bilaterally. ABDOMEN: Soft, nontender, no organomegaly or masses felt. GENITOURINARY: Deferred. RECTAL: Deferred. EXTREMITIES: No cyanosis, clubbing or edema. LABORATORY DATA: Chest x-ray shows small lung volumes, otherwise unremarkable. CT chest angiogram was negative for pulmonary embolus. No infiltrates seen. Echocardiogram showed ejection fraction of 55-60% with mild diastolic dysfunction, normal LV function, pulmonary artery pressure measuring 30 mmHg. Troponin mildly elevated at 0.11. Electrolytes are normal except for bicarbonate of 39, creatinine 1.1. WBC 6200. Arterial blood gas revealed pH of 7.42, pCO2 of 59, pO2 66 on 3 liters of O2. IMPRESSION: 1. Progressive dyspnea in this 78-year-old -German female with a history of chronic obstructive pulmonary disease, sleep apnea. Her chest x-ray is grossly unremarkable. Arterial blood gas shows chronic hypercapnic hypoxic respiratory failure. She has not been compliant with the use of CPAP. Echocardiogram in the past shows mild diastolic dysfunction. Suspect progressive dyspnea is likely multifactorial including suboptimally treated sleep apnea, deconditioning, obesity, perhaps mild component of heart failure. Chronic obstructive pulmonary disease is likely contributing. 2. Obstructive sleep apnea, on CPAP, she requires CPAP of 18 cm H2O, we will continue to encourage the patient in his use daily. The patient has not been quite compliant. 3. Chronic obstructive pulmonary disease, severe impairment, baseline FEV1 of 0.52 liters, 34% predicted, previous chest CT shows evidence of bronchiectasis. 4. Btemk-ol-knonnjv hypoxic hypercapnic respiratory failure. [facility] [address] [place] [address] CONSULTATION Name: RAMIRO VAZ Room #: [facility] [place][note 2]-P [facility] IN M.R.#: [id number] Admission: 06/08/18 ������������������ Attend Phys: Lisa Guadarrama MD Discharge: ������������������ Date of : 40 Report #: [id number] 5. Obesity, deconditioning, likely contributing to progressive dyspnea on exertion. 6. Vjtlv-hx-qpsmegj diastolic heart failure, previously been noted to have chronically elevated troponin. 7. Hypertension. 8. Glaucoma. 9. 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 10. Nonischemic cardiomyopathy with ejection fraction approximately 45%, likely related to suboptimally treated sleep apnea. RECOMMENDATION: We will continue bronchodilators, corticosteroids, wean O2 if saturation 90%. We will encourage CPAP use. DVT and GI prophylaxis is recommended. Thank you for this consultation. ��������������������������������������������� <ELECTRONICALLY SIGNED> ���������������������������������������� By: Reji Doran MD ��������������������������������������������� 06/11/18 1947 1722 0518 Reji Doran MD /nt
[2018-06-11 20:00] VITALS: BP 100/47
--- NOTE | 2018-06-12 02:48 | NUR ---
pt up to commode with sb assist, vss, c/o lopez and tylenol given at hs, placed on bipap at hs sating 100%, resting quietly in bed thru the noc, will con't to monitor per ppoc.
[2018-06-12 04:00] VITALS: BP 113/71
[2018-06-12 05:23] LABS: HEMATOCRIT 36.2 % (37.0-47.0); HEMOGLOBIN 11.8 gm/dL (12.0-15.0); MCH 31.3 pg (26.0-34.0); MCHC 32.6 g/dL (28.0-37.0); MCV 96.1 fL (80.0-100.0); RBC 3.76 mil/uL (4.20-5.00); RDW 12.9 % (10.5-14.5); WBC 10.7 thou/uL (4.0-11.0)
[2018-06-12 05:32] LABS: CALCIUM 9.6 mg/dL (8.5-10.1); CREATININE 0.9 mg/dL (0.6-1.0); POTASSIUM 4.1 mmol/L (3.5-5.1)
[2018-06-12 13:38] VITALS: BP 122/56
--- NOTE | 2018-06-12 16:52 | NUR ---
PT HAS REMAINED STABLE ALL DAY, NO INCREASED O2 NEEDS, PT REMAINS ON 3LNC WHICH IS BASELINE. PT HAS BEEN UP TO CHAIR SEVERAL TIMES FOR ALL MEALS, TOLERATED INCREASED ACTIVITY WITH PT/OT, APPETITE GOOD, REMAINS IN A POSITIVE MOOD ALL DAY, WANTS TO GO HOME TOMORROW IF POSSIBLE.
[2018-06-12 16:58] VITALS: BP 122/56
[2018-06-12 17:00] VITALS: BP 125/78
--- NOTE | 2018-06-12 17:01 | NUR ---
CAROLE reviewed chart and spoke with nursing and attending physician. Pt is progressing towards goals for discharge. Discharge home with HH is anticipated for tomorrow. CAROLE met with pt at bedside to discuss discharge plan. Pt is aware and agreeable with discharge plan. SW discussed recommendation for HH service. Options provided to pt for HH agencies. No preference voiced. SW confirmed pt's home address and phone number. Pt requests SW contact her son, Be, to confirm address. SW left voice message for Be ([phone]). CAROLE notified intake at [facility] of new referral and anticipated discharge. [facility] is able to accept pt on service. Pt will need to schedule an appt with her PCP (Dr. Kareem Quiñonez). Dr. Quiñonez's office is currently closed. SW placed info for pt to call Dr. Quiñonez's office on Friday. Contact info for [facility] placed in pt's discharge summary. Final discharge orders/summary will need to be faxed to [facility] when available. Pt's family will provide transportation home. Pt has home O2 in place. SW is available to assist should needs arise. [facility]--
[2018-06-12 20:05] VITALS: BP 144/50
[2018-06-13] VITALS (7 sets, daily range): BP systolic 104–159; BP diastolic 50–94
--- NOTE | 2018-06-13 04:25 | NUR ---
PT. TRANSFER FROM ICU AROUND 19:30; AOX4; DECREASE VISION; EDUCATED ABOUT CALLING BEFORE STANDING UP FROM BED; ST. UNDERSTANDING; C/O HEADACHE PRN PAIN MEDICATION GIVEN; RE-ASSESSMENT ST. DECREASE PAIN; ABLE TO REST MOST OF THE NIGHT WITH EYES CLOSE; VS WNL; ASSESSMENT CHARGED; FOLLOWING POC; WILL PASS ON REPORT.
[2018-06-13] MEDS ORDERED: PREDNISONE 10 M10 MG PO (14:32)
--- NOTE | 2018-06-13 16:08 | NUR ---
DISCUSSED DC INSTRUCTIONS WITH PATIENT AND SON, VERBALIZED UNDERSTANDING OF ALL MATERIALS. CALLED IN PREDISONE PRESCRIPTION AT PATIENTS REQUEST. LEFT UNIT WITH ALL PERSONAL BELONGINGS, LEFT HOSPITAL WITH SON IN PRIVATE VEHICLE.
== END 2018-06-13 16:08 | disposition home health service (06) | DRG 291 ==
LOC: ER 18:36 → EROBS 23:12 → ICU 23:12 → 2N 06-12 20:30
PROVIDERS: Emergency Medicine; Internal Medicine Pulmonary Disease; ADMIT Internal Medicine
PROC: 5A09357 Assistance with Respiratory Ventilation, Less than 24 Consecutive Hours, Continuous Positive Airway Pressure (ICD-10-PCS; principal; 2018-06-12)
PROC: 5A09357 Assistance with Respiratory Ventilation, Less than 24 Consecutive Hours, Continuous Positive Airway Pressure (ICD-10-PCS; 2018-06-13)
DX: I11.0 Hypertensive heart disease with heart failure (principal); J96.21 Acute and chronic respiratory failure with hypoxia; J96.22 Acute and chronic respiratory failure with hypercapnia; J44.1 Chronic obstructive pulmonary disease with (acute) exacerbation; I50.43 Acute on chronic combined systolic (congestive) and diastolic (congestive) heart failure; I42.9 Cardiomyopathy, unspecified; H40.9 Unspecified glaucoma; I27.20 Pulmonary hypertension, unspecified; G47.33 Obstructive sleep apnea (adult) (pediatric); I25.10 Atherosclerotic heart disease of native coronary artery without angina pectoris; H35.30 Unspecified macular degeneration; H54.61 Unqualified visual loss, right eye, normal vision left eye; E66.01 Morbid (severe) obesity due to excess calories; E78.5 Hyperlipidemia, unspecified; Z90.711 Acquired absence of uterus with remaining cervical stump; I25.2 Old myocardial infarction; Z82.49 Family history of ischemic heart disease and other diseases of the circulatory system; Z87.891 Personal history of nicotine dependence; Z68.34 Body mass index [BMI] 34.0-34.9, adult; Z83.3 Family history of diabetes mellitus; Z79.82 Long term (current) use of aspirin; Z79.899 Other long term (current) drug therapy; Z91.19 Patient's noncompliance with other medical treatment and regimen
CPT/HCPCS: 10081; 10203

== ENCOUNTER 2018-07-07 09:06 | Emergency (ER) | payer OTHER ==
[~2018-07-07] VITALS: Ht 152.4 cm; Wt 81.3 kg
[~2018-07-07 09:06] MED LIST changes: +ALBUTEROL2.5 MG/31 INH; +LIPITOR 20 MG T20 M1 PO; +PREDNISONE 10 M10 MG PO; +TYLENOL325 MG PO
[2018-07-07 09:24] LABS: HEMATOCRIT 34.3 % (37.0-47.0); HEMOGLOBIN 11.1 gm/dL (12.0-15.0); MCHC 32.4 g/dL (28.0-37.0); MCV 95.8 fL (80.0-100.0); PLATELET COUNT 295 thou/uL (150-400); RBC 3.58 mil/uL (4.20-5.00); WBC 5.8 thou/uL (4.0-11.0)
[2018-07-07 09:30] LABS: CALCIUM 10.4 mg/dL (8.5-10.1); CREATININE 0.9 mg/dL (0.6-1.0); POTASSIUM 3.9 mmol/L (3.5-5.1)
[2018-07-07 09:38] LABS: TROPONIN-I 0.16 ng/mL (<0.06)
[2018-07-07 10:00] LABS: ABSOLUTE NEUTROPHILS 3.5 thou/uL (1.4-8.2)
[2018-07-07 10:01] LABS: ANISOCYTOSIS SLIGHT
[2018-07-07] MEDS ORDERED: PREDNISONE 20 M20 M1 PO (10:43)
[2018-07-07] MEDS ORDERED: ALBUTEROL2.5 MG/31 INH (10:45)
[2018-07-07 10:53] VITALS: BP 119/67
--- NOTE | 2018-07-07 17:11 | EKG ---
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1940 Requested By: Cyril Hamilton Order Number: [id number] MD: Raul Brown Measurements Intervals [place] Rate: 108 P: 68 NH: 158 QRS: 45 QRSD: 83 T: 67 QT: 345 QTc: 463 Interpretive Statements Sinus tachycardia Otherwise normal tracing Compared to ECG 06/08/2018 20:09:36 Ventricular premature complex(es) no longer present Electronically Signed On 07-07-2018 17:11:27 CDT by Raul Brown [email or web address] ��������������������������������������������� <ELECTRONICALLY SIGNED> ���������������������������������������� By: Raul Brown MD, [facility] ��������������������������������������������� 07/07/18 1711 D: 03/913 3 Raul Brown MD, FACC /EPI
== END 2018-07-07 10:59 | disposition home or self-care (01) ==
LOC: ER 09:06
PROVIDERS: Emergency Medicine
DX: J44.1 Chronic obstructive pulmonary disease with (acute) exacerbation (principal); I10 Essential (primary) hypertension; F17.210 Nicotine dependence, cigarettes, uncomplicated; Z90.711 Acquired absence of uterus with remaining cervical stump

== ENCOUNTER 2019-01-26 22:13 | Emergency (ER) | payer OTHER ==
[~2019-01-26] VITALS: Ht 175.3 cm; Wt 90.7 kg
[2019-01-26 22:24] LABS: BE(vivo) 3.5 mmol/L (-2 to +3); HCO3 32.7 mmol/L (22.0-26.0); PO2 82.9 mmHg (80.0-100.0); pH 7.259 (7.360-7.450); sO2 94.1 % (92.0-98.0)
[2019-01-26 22:25] LABS: PCO2 74.7 mmHg (35.0-45.0)
[2019-01-26 22:57] LABS: ABSOLUTE NEUTROPHILS 4.2 thou/uL (1.4-8.2); BASOPHILS 0.3 % (0.0-2.0); EOSINOPHILS 1.7 % (0.0-3.0); HEMATOCRIT 36.7 % (37.0-47.0); HEMOGLOBIN 11.6 gm/dL (12.0-15.0); MCH 30.7 pg (26.0-34.0); MCHC 31.6 g/dL (28.0-37.0); MONOCYTES 8.8 % (1.0-8.0); PLATELET COUNT 254 thou/uL (150-400); POLYS 53.2 % (36.0-66.0); RBC 3.78 mil/uL (4.20-5.00)
[2019-01-26 23:00] LABS: CALCIUM 9.4 mg/dL (8.5-10.1); POTASSIUM 3.7 mmol/L (3.5-5.1)
[2019-01-26 23:10] LABS: TROPONIN-I 0.11 ng/mL (<0.06)
[2019-01-27] MEDS ORDERED: LEVAQUIN 500 M500 MG PO (00:48)
[2019-01-27] MEDS ORDERED: PREDNISONE 20 M20 M1 PO (00:49)
[2019-01-27 02:46] VITALS: BP 115/65
--- NOTE | 2019-01-27 08:30 | EKG ---
[place] [address] [employer] [place] [address] ELECTROCARDIOGRAM REPORT Name: RAMIRO VAZ [id number] Admission: 01/26/19 Attend Phys: Discharge: 01/27/19 Date of : 40 Report #: [id number] THIS REPORT FOR: //name// [facility] ED Test Date: 2019-01-26 Test Time: 22:28:28 Pat Name: RAMIRO VAZ Department: Room: Gender: F Director [employer]: vicente : 1940 Requested By: Cyril Hamilton Order Number: [id number] MD: Raul Brown Measurements Intervals [place] Rate: 118 P: 66 ND: 146 QRS: 50 QRSD: 88 T: 80 QT: 331 QTc: 464 Interpretive Statements Sinus tachycardia ventricular premature complexes Nonspecific ST and T wave abnormality Compared to ECG 07/07/2018 09:14:22 Ventricular premature complex(es) now present Electronically Signed On 01-27-2019 8:30:12 CDT by Raul Brown [email or web address] <ELECTRONICALLY SIGNED> By: Raul Brown MD, [facility] 01/27/19 0830 27 27 Raul Brown MD, FAC /EPI
== END 2019-01-27 02:57 | disposition home or self-care (01) ==
LOC: ER 22:13
PROVIDERS: Emergency Medicine
DX: J44.1 Chronic obstructive pulmonary disease with (acute) exacerbation (principal); I10 Essential (primary) hypertension; F17.210 Nicotine dependence, cigarettes, uncomplicated; Z90.711 Acquired absence of uterus with remaining cervical stump

== ENCOUNTER 2019-06-12 22:02 | Inpatient (IN) | payer OTHER ==
[~2019-06-12] VITALS: Ht 152.4 cm; Wt 68.9 kg
[~2019-06-12 22:02] MED LIST changes: +LEVAQUIN 500 M500 MG PO
[2019-06-12 22:04] VITALS: BP 126/68
[2019-06-12 22:34] LABS: ABSOLUTE NEUTROPHILS 4.1 thou/uL (1.4-8.2); BASOPHILS 0.5 % (0.0-2.0); EOSINOPHILS 1.6 % (0.0-3.0); HEMATOCRIT 32.9 % (37.0-47.0); HEMOGLOBIN 10.7 gm/dL (12.0-15.0); MCH 31.8 pg (26.0-34.0); MCHC 32.6 g/dL (28.0-37.0); MCV 97.6 fL (80.0-100.0); MONOCYTES 10.2 % (1.0-8.0); PLATELET COUNT 241 thou/uL (150-400); POLYS 54.7 % (36.0-66.0); RBC 3.37 mil/uL (4.20-5.00); RDW 14.8 % (10.5-14.5); WBC 7.6 thou/uL (4.0-11.0)
[2019-06-12 22:42] LABS: CALCIUM 9.4 mg/dL (8.5-10.1); CREATININE 0.9 mg/dL (0.6-1.0); POTASSIUM 3.9 mmol/L (3.5-5.1)
[2019-06-12 22:51] LABS: MAGNESIUM 1.8 mg/dL (1.8-2.4); TROPONIN-I 0.13 ng/mL (<0.06)
[2019-06-12 23:58] LABS: HCO3 37.2 mmol/L (22.0-26.0); PCO2 64.4 mmHg (35.0-45.0); PO2 56.5 mmHg (80.0-100.0); pH 7.379 (7.360-7.450); sO2 87.9 % (92.0-98.0)
[2019-06-13] VITALS (8 sets, daily range): BP systolic 92–160; BP diastolic 47–85
[2019-06-13 00:54] LABS: BE(vivo) 8.7 mmol/L (-2 to +3); HCO3 35.9 mmol/L (22.0-26.0); PCO2 63.8 mmHg (35.0-45.0); PO2 58.5 mmHg (80.0-100.0); pH 7.368 (7.360-7.450); sO2 88.7 % (92.0-98.0)
--- NOTE | 2019-06-13 06:02 | NUR ---
ASSUME CARE 1900. PT/VITALS STABLE. DENIES PAIN AT THIS TIME. LETHARGIC BUT EASILY AROUSABLE. WEAK BUT MODERATELY TOLERATES ACTIVITY. ASSESSMENT AAS CHARTED. ADEQUATE REST NOTED. NO DISTRESS NOTED FROM TIME OF ARIVAL. A/O X 4. PLAN IS TO CONTINUE TO MANAGE COPD WITH STEROIDS/BRETHING TREATMENTS. ON 4LNC SATS OKAY. DOES NOT NEED BIPAP. WILL CONITNUE TO FOLOW WITH POC
--- NOTE | 2019-06-13 10:10 | EKG ---
[facility] [place] [address] [place] [address] ELECTROCARDIOGRAM REPORT Name: RAMIRO VAZ Room #: 207-P ADM IN M.R.#: [id number] Admission: 06/13/19 Attend Phys: Franklin Delgado MD Discharge: Date of : 40 Report #: [id number] THIS REPORT FOR: cc: Kareem Quiñonez MD, Thomas P. MD Park, Jin S. MD ~ THIS REPORT FOR: //name// [facility] ED Test Date: 2019-06-12 Test Time: 22:17:41 Pat Name: RAMIRO VAZ Department: Room: [facility] Gender: F Porter [facility] 1940 Requested By: Nayeli Quiñones Order Number: [id number] MD: Bakari Dutton Measurements Intervals [place] Rate: 116 P: 81 ND: 142 QRS: 45 QRSD: 77 T: 101 QT: 352 QTc: 490 Interpretive Statements Sinus tachycardia Atrial premature complex Consider right atrial enlargement Nonspecific T abnormalities, lateral leads Borderline prolonged QT interval Compared to ECG 01/26/2019 22:28:28 Atrial premature complex(es) now present T-wave abnormality now present Ventricular premature complex(es) no longer present ST (T wave) deviation no longer present Electronically Signed On 06-13-2019 10:09:29 COMPUTER BUILDER by Bakari Dutton [email or web address] <ELECTRONICALLY SIGNED> By: Bakari Dutton MD 06/13/19 1009 16 16 Bakari Dutton MD /EPI
--- NOTE | 2019-06-13 18:42 | NUR ---
TURN ON BED ALARM FOR THE EVENING.
--- NOTE | 2019-06-14 02:41 | NUR ---
PATIENT ARRIVE IN THE UNIT AT AROUND 2200 FROM CCU. PATIENT AOX4 MAKES NEEDS KNOWN.PATIENT WAS IN 4L OF OXYGEN SHORTNESS OF AIR NOTED WITH ACTIVITIES. PATIENT IS ON BI PAP 02 SAT IS 100% AT THIS TIME. PATIENT AMBULATES SLOWLY WITH STEADY GAITS.PATIENT DENIED PAIN OR DISCOMFORT. PATIENT IN BED ASLEEP AT THIS TIME BREATHING REGULAR AND UNLABOURED.
[2019-06-14 05:10] LABS: CALCIUM 9.4 mg/dL (8.5-10.1); CREATININE 0.9 mg/dL (0.6-1.0); POTASSIUM 4.3 mmol/L (3.5-5.1)
[2019-06-14 08:00] VITALS: BP 120/67
--- NOTE | 2019-06-14 14:31 | NUR ---
PT ADMITTED RLEATED TO COPD EXACERBATION. CM REVIEWED CHART AND SPOKE WITH CARE TEAM. CM MET WITH PT AT BEDSIDE THIS DAY. PT IS A&O X4. CM ROLE INTRODUCED. PT INDICATED SHE LIVES IN A HOUSE WITH HER YOUNGEST SON WITH 1 STEP TO ENTER THROUGH THE GARAGE AND 7 TO MAIN LEVEL. PT INDICATED SHE HAS HOME 02 AT 3L CONTINUOUS. PT INDICATED SHE HAS A CPAP FOR HOME USE WELL. PT INDICATED SHE IS CURRENTLY ON SERVICE WITH [facility] AND WOULD LIKE TO USE THEM AGAIN UPON DC. PT INDICATED SHE SHE PLANS TO MOVE IN WITH HER SISTER SOON AND SHE IS AWARE THAT SHE WILL NEED TO NOTIFY HER HOME HEALTH PROVIDER AND O2 PROVIDER OF ADDRESS CHANGE. CM TO FOLLOW INDICATED WITH ANTICIAPTED DC HOME TOMORROW.
[2019-06-14 15:16] VITALS: BP 97/32
--- NOTE | 2019-06-14 16:17 | NUR ---
Assumed pt care at 7am.Pt in and out of bed with assist and cane to br and chair.Assessment completed.vss .Pt up in chair for breakfast and lunch.Good appetite.Around 1600,bp was 97/32. Pt was asymptomatic but Dr Delgado notified. No new order noted.Will contine to monitor.
[2019-06-14 18:15] VITALS: BP 125/98
[2019-06-14 19:42] VITALS: BP 118/39
--- NOTE | 2019-06-15 01:20 | NUR ---
PATIENT AOX4 MAKES NEEDS KNOWN. PATIENT GETS SHORT OF AIR WITH ACTIVITIES. CALL LIGHT AND PERSONAL ITEM WITHIN REACH. FALL PRECAUTION IN PLACE. PATIENT IN BED ASLEEP AT THIS TIME BREATHING REGULAR AND UNLABOURED.
[2019-06-15 04:23] LABS: HEMATOCRIT 31.2 % (37.0-47.0); HEMOGLOBIN 9.8 gm/dL (12.0-15.0); MCH 30.9 pg (26.0-34.0); MCHC 31.4 g/dL (28.0-37.0); MCV 98.2 fL (80.0-100.0); RBC 3.18 mil/uL (4.20-5.00); RDW 14.9 % (10.5-14.5); WBC 11.5 thou/uL (4.0-11.0)
[2019-06-15 04:36] LABS: CALCIUM 9.4 mg/dL (8.5-10.1); POTASSIUM 4.3 mmol/L (3.5-5.1)
[2019-06-15 07:29] VITALS: BP 138/61
--- NOTE | 2019-06-15 11:32 | NUR ---
Assumed pt care at 7am.Assessment completed.vss.Pt reported sleeping good last noc.Pt pulse fluctuates per cont.sat monitor when asleep.Pt refuses cpap at rest and sleep.Pt tolerated meds and diet.Up to br with sba. No soa noted.Pt in bed sound asleep at present.Will continue to monitor.
[2019-06-15] MEDS ORDERED: PREDNISONE 10 M10 M1 PO (12:00)
[2019-06-15 12:12] VITALS: BP 138/61
--- NOTE | 2019-06-15 13:06 | NUR ---
DISCHARGE PLANNING. ANTICIPATED DISCHARGE TO HOME TODAY. HOME HEALTH RECOMMENDED AT DISCHARGE. PATIENT REFERRAL FAXED TO [facility]. CALL RECEIVED FROM [facility]. ACCEPTING OF PATIENT AT DISCHARGE. [facility] TO FACILITATE HH NEEDS ONCE DISCHARGE/HOME HEALTH RECEIVED.
[2019-06-15 13:27] VITALS: BP 138/61
--- NOTE | 2019-06-15 13:29 | NUR ---
CARE TEAM INDICATED THAT PT IS MEDICALLY STABLE TO DC HOME THIS DAY. PT HAS ORDERS TO RESUME SERVICES WITH [facility]. ORDERS FAXED. PT HAS ALL RECOMMENDED DME. NO OTHER CM INTERVENTION INDICATED. CASE CLOSED.
== END 2019-06-15 14:15 | disposition home or self-care (01) | DRG 189 ==
LOC: ER 22:02 → 4W 06-13 01:05 → EROBS 06-13 01:05 → 2N 06-13 02:31 → 4W 06-13 22:30
PROVIDERS: Emergency Medicine Emergency Medical Services; Nurse Practitioner Family; ADMIT Hospitalist
PROC: 5A09357 Assistance with Respiratory Ventilation, Less than 24 Consecutive Hours, Continuous Positive Airway Pressure (ICD-10-PCS; principal; 2019-06-12)
PROC: 5A09357 Assistance with Respiratory Ventilation, Less than 24 Consecutive Hours, Continuous Positive Airway Pressure (ICD-10-PCS; 2019-06-13)
DX: J96.22 Acute and chronic respiratory failure with hypercapnia (principal); J44.1 Chronic obstructive pulmonary disease with (acute) exacerbation; I42.8 Other cardiomyopathies; I10 Essential (primary) hypertension; H40.9 Unspecified glaucoma; H35.30 Unspecified macular degeneration; F17.210 Nicotine dependence, cigarettes, uncomplicated; G47.33 Obstructive sleep apnea (adult) (pediatric); F32.9 Major depressive disorder, single episode, unspecified; R63.4 Abnormal weight loss; G47.00 Insomnia, unspecified; E55.9 Vitamin D deficiency, unspecified; G31.84 Mild cognitive impairment of uncertain or unknown etiology; D72.829 Elevated white blood cell count, unspecified; Z83.3 Family history of diabetes mellitus; Z82.49 Family history of ischemic heart disease and other diseases of the circulatory system; Z90.710 Acquired absence of both cervix and uterus; Z80.9 Family history of malignant neoplasm, unspecified; Z99.81 Dependence on supplemental oxygen; Z68.29 Body mass index [BMI] 29.0-29.9, adult; Z79.899 Other long term (current) drug therapy
CPT/HCPCS: 10047

== ENCOUNTER 2019-09-17 12:19 | Emergency (ER) | payer OTHER ==
[~2019-09-17] VITALS: Ht 157.5 cm; Wt 85.7 kg
[~2019-09-17 12:19] MED LIST changes: +PREDNISONE 10 M10 M1 PO
[2019-09-17 12:45] LABS: ABSOLUTE NEUTROPHILS 6.9 thou/uL (1.4-8.2); BASOPHILS 0.5 % (0.0-2.0); EOSINOPHILS 0.2 % (0.0-3.0); HEMATOCRIT 32.9 % (37.0-47.0); HEMOGLOBIN 10.9 gm/dL (12.0-15.0); LYMPHOCYTES 11.6 % (24.0-44.0); MCH 31.3 pg (26.0-34.0); MCHC 33.3 g/dL (28.0-37.0); MCV 94.2 fL (80.0-100.0); MONOCYTES 8.1 % (1.0-8.0); PLATELET COUNT 264 thou/uL (150-400); POLYS 79.6 % (36.0-66.0); RBC 3.49 mil/uL (4.20-5.00); RDW 12.6 % (10.5-14.5); WBC 8.7 thou/uL (4.0-11.0)
[2019-09-17 12:53] LABS: ANION GAP < 0 mmol/L (7-16); BUN 20 mg/dL (7-18); CALCIUM 9.2 mg/dL (8.5-10.1); CHLORIDE 97 mmol/L (98-107); CO2 38 mmol/L (21-32); CREATININE 1.1 mg/dL (0.6-1.0); GLUCOSE 126 mg/dL (74-106); POTASSIUM 4.6 mmol/L (3.5-5.1); SODIUM 134 mmol/L (136-145)
[2019-09-17 12:59] LABS: ALBUMIN 3.2 g/dL (3.4-5.0); LIPASE 156 U/L (73-393); SGOT 21 U/L (15-37); SGPT 15 U/L (30-65); TOTAL BILIRUBIN 0.2 mg/dL (0.2-1.0); TOTAL PROTEIN 6.8 g/dL (6.4-8.2)
[2019-09-17 13:20] LABS: URINE BILIRUBIN NEGATIVE (Negative); URINE BLOOD 3+ (Negative); URINE CLARITY CLEAR; URINE COLOR YELLOW; URINE GLUCOSE-RANDOM* NEGATIVE (Negative); URINE KETONES NEGATIVE (Negative); URINE LEUKOCYTES-REFLEX TRACE (Negative); URINE NITRITE-REFLEX NEGATIVE (Negative); URINE PROTEIN (DIPSTICK) TRACE (Negative); URINE SPECIFIC GRAVITY 1.025 (1.005-1.035); URINE UROBILINOGEN 0.2 E.U./dl (0.2-1.0)
[2019-09-17 13:34] LABS: SQUAMOUS 4-10 Moderate /LPF (0-3)
[2019-09-17 13:35] LABS: CASTS None Seen /LPF (None Seen); MUCUS 0-3 Light strn/LPF (None Seen); URINE RBC >20 Many /HPF (0-2); URINE WBC-REFLEX 0-5 Rare /HPF (0-5)
[2019-09-17 13:36] LABS: BACTERIA-REFLEX 1-9 Few /HPF (None Seen); CRYSTALS None Seen /LPF (None Seen)
[2019-09-17 16:18] VITALS: BP 176/82
== END 2019-09-17 16:19 | disposition short-term general hospital (02) ==
LOC: ER 12:19
PROVIDERS: Physician Assistant
DX: N13.5 Crossing vessel and stricture of ureter without hydronephrosis (principal); N20.1 Calculus of ureter; I10 Essential (primary) hypertension; J44.9 Chronic obstructive pulmonary disease, unspecified; F17.210 Nicotine dependence, cigarettes, uncomplicated; Z90.49 Acquired absence of other specified parts of digestive tract; Z79.899 Other long term (current) drug therapy; Z90.711 Acquired absence of uterus with remaining cervical stump